=== PATIENT | male | born 1960 | race Caucasian/White ===

== ENCOUNTER 2019-08-25 13:12 | Emergency (ER) | payer BC, SELFPAY ==
[2019-08-25 13:18] VITALS: BP 168/101; PULSE 83; RESP 19; TEMP 36.4; O2SAT 97
--- NOTE | 2019-08-25 13:49 | ED.UPPEXIN ---
HPI - Extremity Injury (Upper) <AIDA Howard - Last Filed: 08/25/19 14:02> General Chief Complaint: Extremity Injury, Upper Stated Complaint: Think he broke a Blood Vessel right elbow Time Seen by Provider: 08/25/19 13:15 Source: patient Mode of arrival: Ambulatory Limitations: no limitations History of Present Illness HPI narrative: This is a 59-year-old male, nonsmoker, reports no chronic medical condition presents to ED with his significant other with chief complain of sudden onset of right elbow swelling and bruise. Reports he was washing car and lean done the affected elbow to clean a rim of the car and felt skin stretching and mild discomfort. Patient denies history of blood clotting problems. Reports occasional bleeding from his gum but denies noticing blood in his stool or urine or frequent bruising. Patient states is in good health but takes 1 baby aspirin a day for heart protectant purpose since family history of CAD. Patient reports intact sensation and good strength on affected arm. Patient states immediately he used ice pack and had put pressure around his upper arm to help with bruising and swelling and states seems the size of the swelling has decreased since then. Related Data Previous Rx's Medication Instructions Recorded omeprazole 40 mg PO QDAY #90 cap 07/25/17 Allergies Allergy/AdvReac Type Severity Reaction Status Date / Time INGREDIENT: NO KNOWN - NO Allergy Unknown Uncoded 08/25/19 13:33 KNOWN DRUG ALLERGY Review of Systems <AIDA Howard - Last Filed: 08/25/19 14:02> Review of Systems Narrative: General: Denies fever, chills, fatigue, malaise, sweats. HEENT: Denies sinus pain, ear pain, sore throat, difficulty swallowing, dizziness. Respiratory: Denies dyspnea, cough, wheezing, hemoptysis, sputum. Cardiovascular: Denies chest pain, palpitations, orthopnea, edema. Gastrointestinal: Denies nausea, vomiting, abdominal pain, diarrhea, constipation, melena. : Denies dysuria, frequency, incontinence, hematuria, urinary retention. Musculoskeletal: See HPI Skin: See HPI Neurologic: Denies weakness, headache, numbness, change in speech, confusion, seizures, incoordination. Psychiatric: No concerning psychosocial issues. 12-point review of systems is negative except for those stated above. Patient History <AIDA Howard - Last Filed: 08/25/19 14:02> Medical History No significant past medical history (Acute) Surgical History No pertinent past surgical history (Acute) Family History Brother Age: 55 Heart valve problem High cholesterol Overweight Back problem Father Prostate cancer Social History Smoking Status: Never smoker Smoking Status: Never smoker alcohol intake frequency: 3 or more drinks per day Alcohol type: beer Substance Use Type: does not use Exam <AIDA Howard - Last Filed: 08/25/19 14:02> Narrative Exam Narrative: General appearance: well developed, well nourished, in no acute distress. Head: normocephalic, atraumatic, no scalp lesions, non-tender. ENT: Hearing grossly intact. Nose without bleeding, purulent discharge. Mucous membrane moist, no mucosal lesion. Throat without erythema, tonsillar hypertrophy or exudate. Uvula in midline, airway patent. Neck/Thyroid: neck supple, full range of motion, no visible masses or meningeal signs. No JVD, non-tender without lymphadenopathy. Skin: no suspicious rashes, lesions over visible areas. Warm and dry and appropriate color for ethnicity. Heart: no clubbing, no cyanosis, no edema. Lungs: Breathing even and unlabored. No stridor. No accessory muscles used. Able to speak in full sentences. Chest: normal shape and expansion. Abdomen: non-obese, non-distended. Neurologic: alert and oriented. Cognitive exam, [employer] and PNS grossly intact on informal exam. Psych: good eye contact, normal affect. Initial Vital Signs Initial Vital Signs: Vital Signs Temperature 97.5 F L 08/25/19 13:18 Pulse Rate 83 08/25/19 13:18 Respiratory Rate 19 08/25/19 13:18 Blood Pressure 168/101 H 08/25/19 13:18 Pulse Oximetry 97 08/25/19 13:18 Extrem Right upper extremity: full ROM, normal capillary refill, elbow/forearm Details: swelling (Mild diffused) Location: of the olecranon, normal ROM (Equal bilateral full strength with good extension and flexion), ecchymosis (Mild diffused dorsal aspect of elbow) and distal pulses intact (Intact in radial ); no unusual warmth, no abrasions, no lacerations, no crepitus, no foreign bodies and no deformity and hand Details: normal to inspection, normal capillary refill, neuromotor exam normal, neurosensory exam normal and normal ROM of fingers <Jessee Lubin DO - Last Filed: 08/25/19 14:30> Initial Vital Signs Initial Vital Signs: Vital Signs Temperature 97.5 F L 08/25/19 13:18 Pulse Rate 83 08/25/19 13:18 Respiratory Rate 19 08/25/19 13:18 Blood Pressure 168/101 H 08/25/19 13:18 Pulse Oximetry 97 08/25/19 13:18 Scores <Behzad GarzaVIC RicoP - Last Filed: 08/25/19 14:02> GCS Oscar coma scale eye opening: Spontaneous [place] coma scale verbal response: Orientated Oscar coma scale motor response: Obey commands Oscar coma scale total score: 15 Course [facility] Last Filed: 08/25/19 14:02> Vital Signs Vital signs: Vital Signs - 8 hr 08/25/19 13:18 Temperature 97.5 F L Pulse Rate 83 Respiratory Rate 19 Blood Pressure 168/101 H Pulse Oximetry 97 <Jessee Lubin DO - Last Filed: 08/25/19 14:30> Vital Signs Vital signs: Vital Signs - 8 hr 08/25/19 13:18 Temperature 97.5 F L Pulse Rate 83 Respiratory Rate 19 Blood Pressure 168/101 H Pulse Oximetry 97 [facility] - Extremity Injury (Upper) <[facility] Last Filed: 08/25/19 14:02> Differential Diagnosis Differential diagnosis: Likely other (Elbow contusion, bursitis, clotting defect) Medical Records Attestation: I reviewed the patient's medical records. Lab Data Attestation: I reviewed the patient's lab results. [facility] Narrative Medical decision making narrative: This is a 59-year-old male who presents to ED with sudden onset of right elbow bruising and swelling after leaning on the affected right elbow and bearing weight while cleaning his car. Patient has good strength on affected arm with normal flexion and extension against resistance. He had good radial pulse and intact sensation. Patient declined CBCs test stating he has been healthy and should see his doctor sometime soon for general medical exam and basic lab tests. Considered x-ray test but there is no trauma involved with patient has good strength and range of motion so this has been deferred. Lkeber wrap was offered but states he has it at home you had how to use this to give support and help with swelling. Cool pack was applied on affected site and advised to use next 1-2 days intermittently. Patient had may have bursitis without infection. Patient advised to skip baby aspirin for next several days and watch for signs of bleeding in other areas. We reviewed return precautions such as signs of infection and patient verbalized understanding and agreement with the treatment plan. Discharge Plan Departure Patient Disposition: Home Clinical Impression: Elbow contusion Qualifiers: Encounter type: initial encounter Laterality: right Qualified Code(s): S50.01XA - Contusion of right elbow, initial encounter Discharge Date/Time: 08/25/19 13:40 Instructions: DI for Elbow Sprain Activity Restrictions/Additional Instructions: You have been diagnosed with [elbow bruise and swelling. You have good strength with sensation, range of motion on affected arm. There is limited discomfort. X-ray test has been deferred due to no trauma. Please follow-up with primary care physician in the near future for blood test-CBC and clotting factors. You may skip taking baby aspirin for next few days. You can use Kleber wrap on affected site to help with mild swelling and support. You can use cool packs on for 30 minutes next 2 days if you continue to have swelling.]. What to do: *Take your medications as directed. *Follow up with your primary care provider in 2-3 days, call for an appointment. Let them know you were seen in the ED and that we asked you to be seen in follow up. *Return to ED if you have any new, worsening, or concerning symptoms, such as [fever, redness increasing around the elbow, not feeling well, increasing pain, chest pain, breathing difficulty or any acute concerns]. Prescriptions: No Action omeprazole 40 MG capsule,delayed release(DR/EC) 40 mg PO QDAY Qty: 90 RF: 3 <Jessee Lubin DO - Last Filed: 08/25/19 14:30> Cosign ED Attending Cosignature Attestation: Dr Lubin Co-Sign Statement: I was available for consultation during this patient's emergency department visit. This chart is signed by myself for administrative purposes only. I did not have direct contact with this patient during this visit. They were seen independently by the APC.
== END 2019-08-25 13:40 | disposition home or self-care (01) ==
PROVIDERS: Emergency Provider Nurse Practitioner Family; Referring Provider Nurse Practitioner Family
DX: S50.01XA Contusion of right elbow, initial encounter (principal); Z79.82 Long term (current) use of aspirin
CPT/HCPCS: 99281

== ENCOUNTER → 2020-01-22 08:42 | Outpatient (CLI) | payer OTHER, SELFPAY ==
--- NOTE | 2020-01-22 08:48 | DI.RAD.S_ITS ---
PROCEDURE: XR HIP W PEL IF DONE RT 2V INDICATIONS: right groin pain TECHNIQUE: AP pelvis with lateral view(s) of the right hip(s). COMPARISON: None. FINDINGS: Bones: No fractures or dislocations. Moderate right hip joint osteoarthritic changes are seen. Pelvic ring appears intact. No suspicious bony lesions. Soft tissues: The visualized bowel gas pattern is normal. No suspicious soft tissue calcifications. IMPRESSION: Right hip joint osteoarthritis. No fracture or dislocation. No evidence of avascular necrosis. Dictated by: Juan C Trejo M.D. on 01/22/2020 at 10:05 Approved by: Juan C Trejo M.D. on 01/22/2020 at 10:05
== END ==
PROVIDERS: PCP Family Medicine; Referring Provider Family Medicine; Visit Provider Family Medicine
DX: R10.31 Right lower quadrant pain (principal); M16.11 Unilateral primary osteoarthritis, right hip
CPT/HCPCS: 73502

== ENCOUNTER → 2020-02-24 07:19 | Outpatient (CLI) | payer OTHER, SELFPAY ==
[2020-02-24 08:39] LABS: Hemoglobin A1C% w Est Avg Glu 5.7 % (4.0-6.0)
[2020-02-24 09:12] LABS: BUN Creatinine Ratio 15.8 (6-22); Blood Urea Nitrogen 16 mg/dL (9-20); Calcium 9.7 mg/dL (8.4-10.2); Carbon Dioxide 28 mmol/L (22-32); Chloride 104 mmol/L (98-107); Cholesterol 232 mg/dL (140-199); Estimated Glomerular Filt Rate > 60.0 mL/min (>60); Glucose 106 mg/dL (70-100); HDL Cholesterol 40 mg/dL (40-60); HEMOLYSIS < 15 (0-50); LDL Cholesterol Calculated 150 mg/dL (<100); Potassium 4.6 mmol/L (3.4-5.1); Sodium 138 mmol/L (137-145); Triglycerides 211 mg/dL (35-150)
== END ==
PROVIDERS: PCP Family Medicine; Referring Provider Family Medicine; Visit Provider Family Medicine
DX: E78.5 Hyperlipidemia, unspecified (principal); K21.9 Gastro-esophageal reflux disease without esophagitis
CPT/HCPCS: 36415; 80048; 80061; 83036

== ENCOUNTER → 2021-09-29 07:02 | Outpatient (CLI) | payer OTHER, SELFPAY ==
--- NOTE | 2021-09-29 07:04 | DI.US.S_ITS ---
PROCEDURE: US ABDOMEN LIMITED INDICATIONS: LEFT INGUINAL BULDGE TECHNIQUE: Real-time focused scanning was performed of the abdomen, with image documentation. COMPARISON: None. FINDINGS: Scanning is performed at the area of clinical concern involving the left inguinal region. There is a fat containing direct inguinal hernia seen, which partially reduces with compression. IMPRESSION: Fat containing partially reducible direct left inguinal hernia. Please consider surgical consultation. If it would be helpful for clinical management decision making in this patient with this given history, please consider a dedicated CT of the pelvis for further evaluation. Dictated by: Heriberto Gutierrez M.D. on 09/29/2021 at 8:47 Approved by: Heriberto Gutierrez M.D. on 09/29/2021 at 8:48
== END ==
PROVIDERS: PCP Family Medicine; Referring Provider Family Medicine; Visit Provider Family Medicine
DX: R19.09 Other intra-abdominal and pelvic swelling, mass and lump (principal); R10.32 Left lower quadrant pain; K40.90 Unilateral inguinal hernia, without obstruction or gangrene, not specified as recurrent
CPT/HCPCS: 76705

== ENCOUNTER → 2021-10-24 08:54 | Outpatient (CLI) | payer OTHER, SELFPAY ==
[2021-10-24 11:57] LABS: COVID19 -Nasal RAPID Negative (Negative)
== END ==
PROVIDERS: PCP Family Medicine; Visit Provider Surgery
DX: Z01.812 Encounter for preprocedural laboratory examination (principal); Z20.822 Contact with and (suspected) exposure to COVID-19
CPT/HCPCS: 87635; C9803

== ENCOUNTER 2021-10-25 06:43 | Day surgery (SDC) | payer OTHER, SELFPAY ==
[2021-10-21 08:23] VITALS: BMI 30.1
[2021-10-25] VITALS (11 sets, daily range): BP systolic 102–137; BP diastolic 67–86; PULSE 58–64; RESP 11–21; TEMP 35.9–36.2; O2SAT 93–98; BMI 30.1
[2021-10-25] MEDS: LACTATED RINGERS 1,000 ML 42 ML IV ×2 (07:28→09:09)
--- NOTE | 2021-10-25 07:37 | PM.PREOP ---
Pre-operative Note Interval Note History & Physical reviewed/Exam performed by Physician: Yes Changes to H&P: No
[2021-10-25] MEDS: CEFAZOLIN 2 GM/20 ML SYRINGE IV (07:53)
--- NOTE | 2021-10-25 08:08 | SUR.OPER ---
Supine on padded OR bed, head on pillow, arms secured on padded arm boards at <90 degrees abduction, legs uncrossed, safety belt at thigh, tape over blanket over lower legs.
[2021-10-25] MEDS: BUPIVACAINE 0.5% (PF) VIAL 30 ML INJ (08:13)
--- NOTE | 2021-10-25 08:58 | P.OP_ITS ---
Operative Date/Time/Diagnoses Date of procedure: 10/25/21 Time of procedure: 08:58 Pre-op diagnosis: Left inguinal hernia Post-op diagnosis: same Procedure & Clinicians Procedure: Open left inguinal hernia repair with mesh Same procedure as scheduled: Yes Indications: Symptomatic reducible left inguinal hernia Surgeon: Donta Samuel Operative Notes Findings: Large left inguinal hernia containing loop of colon and omentum Specimen(s): none sent Estimated Blood Loss (mL): 20 Procedure in detail: The patient was placed supine on the table and bilateral lower extremity compression devices were applied. Anesthesia was induced they were intubated with an LMA and received Clindamycin. A time-out was performed. They were prepped and draped in sterile fashion. The left external inguinal ring and the anterior superior iliac crest were identified and marked. 1 finger breath above the inguinal ligament the skin was infiltrated with 0.25% bupivacaine. The skin incision was made here and the subcutaneous tissues were divided with electrocautery exposing the external oblique aponeurosis which was then opened along the direction of its fibers. Using blunt dissection the internal oblique aporneurosis was from the external oblique upper leaflet. the cord was carefully dissected away from the inguinal canal adjacent to the pubic tubercle. The cord including the vas deferens, testicular bloody supply, ilioguinal and genital nerve were encircled with a [place] drain. No direct floor defect was identified. The cremasteric fibers surrounding the cord were divided using electrocautery adjacent to the internal ring.. The vas deferens and the testicular vessels were preserved and protected. There was a large indirect hernia on the anterior medial aspect of the cord which was skeletonized away from the vas deferens and testicular blood supply. The indirect hernia contained a loop of colon and associated omentum. The indirect hernia was skeletonized back to the internal ring and reduced spontaneously into the abdomen. I selected a 7x 15 cm lightweight Pro Loop hernia mesh. The inferior medial aspect of the mesh was anchored to insertion of the rectus muscle to the pubic tubercle such that there was approximately 2 cm of tubercle overlap with Ethibond and then was run continuously along the inferior edge of the mesh to the shelving edge of the inguinal ligament. Interrupted 3 0 Vicryl suture was used to anchor the superior aspect of the mesh to the conjoined tendon in several places. The tails were then reapproximated loosely around the spermatic cord. The tails of the mesh were then tucked under the external oblique aponeurosis. The repair was checked for hemostasis. The wound was irrigated with sterile saline. The external oblique aponeurosis was reapproximated in a running fashion using 3 0 Vicryl. The subcutaneous tissues were reapproximated with 3 0 Vicryl skin closed with 4 0 Monocryl followed by the application of Dermabond. At the end of the operation I ensured that both testicles were within the scrotum. The sponge instrument count at the end operation was correct. The patient emerged from anesthesia was extubated and transferred to the postoperative care unit in stable condition. A total of 30 ml of of 0.25% bupivicaine was used to infiltrate the skin. Complications: none Post-operative Condition: stable Disposition: same day surgery
[2021-10-25] MEDS: ONDANSETRON 4 MG/2 ML INJ IV (09:14)
--- NOTE | 2021-10-25 09:15 | SUR.PHASEI ---
Patient waking up but drowsy; denies any needs at this time and speaking in full sentences. Following all commands. VSS.
[2021-10-25] MEDS: OXYCODONE/ACETAMINOPHEN 5/325 TABLET 1 TAB PO (09:18)
== END 2021-10-25 10:03 | disposition home or self-care (01) ==
PROVIDERS: PCP Family Medicine; Referring Provider Surgery; Visit Provider Surgery
PROC: (CPT 49505; principal; 2021-10-25 07:45)
DX: K40.90 Unilateral inguinal hernia, without obstruction or gangrene, not specified as recurrent (principal); K21.9 Gastro-esophageal reflux disease without esophagitis
CPT/HCPCS: 49505; 82962; J0690; J2405; J3010

== ENCOUNTER 2022-05-12 09:07 | Emergency (ER) | payer OTHER, SELFPAY ==
--- NOTE | 2022-05-12 09:53 | DI.RAD.S_ITS ---
PROCEDURE: XR KNEE LT 3V INDICATIONS: Pain. TECHNIQUE: 3 views of the knee were acquired. COMPARISON: None. FINDINGS: Bones: No fractures or dislocations. No suspicious bony lesions. Minimal early medial arthritic changes. Patellar spur is present. Soft tissues: Mild joint effusion. No suspicious soft tissue calcifications. IMPRESSION: Mild effusion. No visualized acute fracture or dislocation. However, if clinical concern and/or pain persist, short interval imaging followup in 7-10 days is recommended, as occult injury cannot be definitively excluded. Dictated by: Viv King M.D. on 05/12/2022 at 10:36 Approved by: Viv King M.D. on 05/12/2022 at 10:36
[2022-05-12 09:54] VITALS: BP 151/79; PULSE 66; RESP 18; TEMP 36.3; O2SAT 98; BMI 29.7
--- NOTE | 2022-05-12 10:26 | ED.LOWEXIN ---
HPI - Extremity Injury (Lower) General Chief Complaint: Extremity Injury, Lower Stated Complaint: hurt LT knee T-14 getting worse Time Seen by Provider: 05/12/22 10:10 Source: patient Mode of arrival: Family Vehicle Limitations: no limitations History of Present Illness HPI Narrative: Patient is a 62-year-old male who a couple weeks ago stated that he hurt the muscles in his left knee. He was still able to ambulate and things seem to be improving somewhat however today he stepped down off of a step ladder. He did state that he stepped little awkwardly. He felt and heard a pop in his leg. Has had pain on the inside of his knee since then. Is able to ambulate but with discomfort. It is difficult for him to specifically describe where they discomfort is. No prior surgeries to this knee. Related Data Home Medications Medication Instructions Recorded Confirmed omeprazole 20 mg capsule,delayed 20 mg PO DAILY 01/22/20 10/25/21 release Previous Rx's Medication Instructions Recorded acetaminophen 325 mg capsule 650 mg PO QID PRN pain #60 caps 10/25/21 (Tylenol) docusate sodium 100 mg capsule 100 mg PO BID #30 caps 10/25/21 (Colace) ibuprofen 200 mg tablet 400 mg PO Q6H #60 tabs 10/25/21 tramadol 50 mg tablet 50 mg PO Q6H PRN pain #25 tabs 05/12/22 Allergies Allergy/AdvReac Type Severity Reaction Status Date / Time No Known Drug Allergies Allergy Verified 11/10/21 09:03 Review of Systems Constitutional Constitutional: Reports system reviewed and no additional complaints, except as documented Musculoskeletal Musculoskeletal: Reports system reviewed and no additional complaints, except as documented Integumentary/Breasts Skin/Breast: Reports system reviewed and no additional complaints, except as documented Neurologic Neurologic: Reports system reviewed and no additional complaints, except as documented Patient History Medical History GERD (gastroesophageal reflux disease) Hyperlipidemia Left groin mass Left groin pain No significant past medical history Olecranon bursitis Right groin pain Surgical History (Updated 10/21/21 @ 08:27 by Kate Cowan RN) History of ankle surgery (~2001) Family History Brother Age: 58 Heart valve problem High cholesterol Overweight Back problem Father Prostate cancer Social History household members: spouse Smoking Status: Never smoker alcohol intake: current Smoking Status: Never smoker alcohol intake frequency: 0-2 drinks per day Alcohol type: beer Substance Use Type: does not use Exam Initial Vital Signs Initial Vital Signs: Vital Signs Temperature 97.3 F L 05/12/22 09:54 Pulse Rate 66 05/12/22 09:54 Respiratory Rate 18 05/12/22 09:54 Blood Pressure 151/79 H 05/12/22 09:54 Pulse Oximetry 98 05/12/22 09:54 Oxygen Delivery Method 05/12/22 09:54 Const General: cooperative and No ill appearing HENMT Head: normal to inspection and normocephalic Skin General: no rashes or lesions noted Extrem Other: Minimal if any effusion left knee. Quadriceps and patellar tendon are intact. No tenderness with palpation of the hamstrings. No tenderness along the mediolateral joint line. His PCL MCL and LCL are intact. He does have discomfort with testing of his ACL which makes it difficult to see if there is a firm endpoint to this. Course Orders Ordered: ED Orders 05/12/22 09:53 XR knee LT 3V Stat Vital Signs Vital signs: Vital Signs - 8 hr 05/12/22 09:54 05/12/22 11:21 05/12/22 11:22 Temperature 97.3 F L Pulse Rate 66 Respiratory Rate 18 Blood Pressure 151/79 H Pulse Oximetry 98 95 96 Oxygen Delivery Method Room Air Room Air 05/12/22 11:22 Temperature Pulse Rate 68 Respiratory Rate Blood Pressure 136/88 Pulse Oximetry Oxygen Delivery Method MDM - Extremity Injury (Lower) Differential Diagnosis Differential diagnosis: Likely other (Fracture, dislocation, ligament tear, muscle tear and others) Imaging Data Extremity x-ray #1: Radiologist's Impression: [address] [address] XRay Report Signed Patient: Chris Stein MR#: [id number] : 1960 Acct:[id number] Age/Sex: 62 / M Date of Service: 05/12/22 Loc: ED Accession Number: [id number] ?? Procedure: XR knee LT 3V Ordering Provider: Jessee Lubin D.O. PROCEDURE:? XR KNEE LT 3V ? INDICATIONS:? Pain. ? TECHNIQUE:? 3 views of the knee were acquired.? ? COMPARISON:? None. ? FINDINGS:? ? Bones:? No fractures or dislocations.? No suspicious bony lesions.? Minimal early medial arthritic changes.? Patellar spur is present. ? Soft tissues:? Mild joint effusion.? No suspicious soft tissue calcifications.? ? ? IMPRESSION:? Mild effusion. No visualized acute fracture or dislocation. However, if clinical concern and/or pain persist, short interval imaging followup in 7-10 days is recommended, as occult injury cannot be definitively excluded. ? ? Dictated by: Viv King M.D. on 05/12/2022 at 10:36 ? ? Approved by: Viv King M.D. on 05/12/2022 at 10:36? MDM Narrative Medical decision making narrative: The x-ray shows no signs of fracture or dislocation. There is a small effusion noted on the x-ray. His only objective finding is discomfort with testing of the ACL. Does appear to be intact because it does have a firm endpoint however there is concern that he has partial tear versus sprain of this. There is also concern about meniscus injury given his injury. Patient was given crutches. Was given an Kleber bandage although he was also instructed that he could purchase a knee brace [id number]. We discussed conservative measures to include elevation and ice. He will contact his primary provider for a follow-up and if his symptoms have not improved or if he continues to have instability he may need a MRI. He was given return precautions. He expressed understanding and agreement. Discharge Plan Departure Patient Disposition: Home Clinical Impression: Injury of knee, left Instructions: How to Use Crutches, How To Perform RICE (Rest, Ice, Compress, Elevate), How to Apply an Elastic Wrap on Knee Activity Restrictions/Additional Instructions: There were no fractures noted on the x-rays you can walk on your knee as tolerated. I do recommend that you either use the Kleber bandage or purchase a knee brace to support the left knee. Use the crutches as needed. Contact your primary doctor for a follow-up as you may need further imaging to include an MRI. Return to the emergency department for new symptoms. Prescriptions: New tramadol 50 mg tablet 50 mg PO Q6H PRN (Reason: pain) Qty: 25 0RF No Action omeprazole 20 mg capsule,delayed release(DR/EC) 20 mg PO DAILY docusate sodium [Colace] 100 mg capsule 100 mg PO BID Qty: 30 0RF ibuprofen 200 mg tablet 400 mg PO Q6H Qty: 60 0RF acetaminophen [Tylenol] 325 mg capsule 650 mg PO QID PRN (Reason: pain) Qty: 60 0RF Referrals: Lino Sheehan MD [Primary Care Provider] - Stand Alone Forms: Patient Portal/API, Work Release Note
[2022-05-12 11:21] VITALS: O2SAT 95
[2022-05-12 11:22] VITALS: BP 136/88; PULSE 68; O2SAT 96
== END 2022-05-12 11:32 | disposition home or self-care (01) ==
PROVIDERS: Emergency Provider Emergency Medicine; PCP Family Medicine
DX: S89.92XA Unspecified injury of left lower leg, initial encounter (principal); X50.1XXA Overexertion from prolonged static or awkward postures, initial encounter
CPT/HCPCS: 73562; 99283

== ENCOUNTER → 2022-06-02 07:26 | Outpatient (CLI) | payer OTHER, SELFPAY ==
[2022-06-02 08:07] LABS: Add Manual Diff / Slide Review NO; Basophils Absolute Auto 0 /uL (0-100); Basophils Percent Auto 0.9 % (0-2); Eosinophils Absolute Auto 100 /uL (0-450); Eosinophils Percent Auto 2.6 % (2-4); Hematocrit 41.1 % (41-53); Hemoglobin 13.8 g/dL (13.5-17.5); Lymphocytes Absolute Auto 1200 /uL (1100-4500); Lymphocytes Percent Auto 25.3 % (25-40); Mean Corpuscular HGB Conc 33.5 % (30-36); Mean Corpuscular Hemoglobin 30.3 PG (26-34); Mean Corpuscular Volume 90.4 fL (80-100); Monocytes Absolute Auto 500 /uL (0-900); Monocytes Percent Auto 9.5 % (3-14); Neutrophils Absolute Auto 3000 /uL (1500-7000); Neutrophils Percent Auto 61.7 % (50-75); Platelet Count 312 X10^3/uL (150-400); Red Blood Cell Count 4.54 X10^6/uL (4.5-5.9); Red Cell Distribution Width 12.9 % (11.6-14.8); White Blood Cell Count 4.8 X10^3/uL (4.5-11.0)
[2022-06-02 08:17] LABS: Alanine Aminotransferase 32 IU/L (<50); Albumin 4.2 g/dL (3.5-5.0); Albumin Globulin Ratio 1.4 (1.0-2.8); Alkaline Phosphatase 69 U/L (38-126); Aspartate Aminotransferase 26 IU/L (17-59); BUN Creatinine Ratio 11.5 (6-22); Bilirubin Total 0.8 mg/dL (0.2-1.3); Blood Urea Nitrogen 13 mg/dL (9-20); Calcium 9.2 mg/dL (8.4-10.2); Carbon Dioxide 27 mmol/L (22-32); Chloride 101 mmol/L (98-107); Cholesterol 227 mg/dL (140-199); Estimated Glomerular Filt Rate > 60 mL/min (>60); Glucose 111 mg/dL (80-110); HDL Cholesterol 43 mg/dL (40-60); HEMOLYSIS < 15 (0-50); LDL Cholesterol Calculated 148 mg/dL (<100); Potassium 4.3 mmol/L (3.4-5.1); Sodium 136 mmol/L (137-145); Total Protein 7.2 g/dL (6.3-8.2); Triglycerides 182 mg/dL (35-150)
== END ==
PROVIDERS: PCP Family Medicine; Referring Provider Family Medicine; Visit Provider Family Medicine
DX: E78.5 Hyperlipidemia, unspecified (principal); K21.9 Gastro-esophageal reflux disease without esophagitis; R10.31 Right lower quadrant pain
CPT/HCPCS: 36415; 80053; 80061; 85025

== ENCOUNTER → 2023-02-15 07:52 | Outpatient (CLI) | payer OTHER, SELFPAY ==
[2023-02-15 09:01] LABS: Add Manual Diff / Slide Review NO; Basophils Absolute Auto 0 /uL (0-100); Eosinophils Absolute Auto 200 /uL (0-450); Eosinophils Percent Auto 3.5 % (2-4); Hematocrit 41.1 % (41-53); Hemoglobin 13.8 g/dL (13.5-17.5); Lymphocytes Absolute Auto 1300 /uL (1100-4500); Lymphocytes Percent Auto 27.8 % (25-40); Mean Corpuscular HGB Conc 33.5 % (30-36); Mean Corpuscular Hemoglobin 30.1 PG (26-34); Mean Corpuscular Volume 89.8 fL (80-100); Monocytes Absolute Auto 500 /uL (0-900); Monocytes Percent Auto 9.8 % (3-14); Neutrophils Absolute Auto 2800 /uL (1500-7000); Neutrophils Percent Auto 57.9 % (50-75); Platelet Count 304 X10^3/uL (150-400); Red Blood Cell Count 4.57 X10^6/uL (4.5-5.9); Red Cell Distribution Width 12.5 % (11.6-14.8); White Blood Cell Count 4.8 X10^3/uL (4.5-11.0)
[2023-02-15 09:13] LABS: Bilirubin Urine UA NEGATIVE (NEGATIVE); Glucose Urine UA NEGATIVE (Negative); Ketones Urine UA NEGATIVE (NEGATIVE); Leukocyte Esterase Urine UA NEGATIVE (NEGATIVE); Nitrite Urine UA NEGATIVE (Negative); Occult Blood Urine UA NEGATIVE (Negative); Protein Urine UA NEGATIVE (Negative); Specific Gravity Urine UA >=1.030 (1.000-1.035); pH Urine UA 5.5 (4.5-8.0)
[2023-02-15 09:17] LABS: Hemoglobin A1C% w Est Avg Glu 5.9 % (4.0-6.0)
[2023-02-15 09:36] LABS: Appearance Urine UA Clear; Color Urine UA Yellow; RBC Urine None Seen (0-5/HPF); WBC Urine 0-1/HPF (0-5/HPF)
[2023-02-15 09:37] LABS: Bacteria Urine Occasional (0-1); Culture Indicated Urine Cult Not Indicated; Mucus Urine 1+ (Negative); Squamous Epithelial Cell Urine None Seen (0-5/HPF)
[2023-02-15 09:56] LABS: BUN Creatinine Ratio 16.2 (6-22); Blood Urea Nitrogen 19 mg/dL (9-20); Calcium 9.6 mg/dL (8.4-10.2); Carbon Dioxide 24 mmol/L (22-32); Chloride 103 mmol/L (98-107); Estimated Glomerular Filt Rate > 60 mL/min (>60); Glucose 101 mg/dL (80-110); HEMOLYSIS < 15 (0-50); Potassium 4.7 mmol/L (3.4-5.1); Sodium 136 mmol/L (137-145)
== END ==
LOC: LAB 07:53 → RESP 07:55
PROVIDERS: PCP Family Medicine; Referring Provider Orthopaedic Surgery; Visit Provider Orthopaedic Surgery
DX: Z01.818 Encounter for other preprocedural examination (principal); Z01.812 Encounter for preprocedural laboratory examination; R73.9 Hyperglycemia, unspecified; N39.0 Urinary tract infection, site not specified
CPT/HCPCS: 36415; 80048; 81001; 83036; 85025; 93005

== ENCOUNTER 2023-05-22 06:07 | Day surgery (SDC) | payer OTHER, SELFPAY ==
[2023-05-14 08:38] VITALS: BMI 30.1
[2023-05-22] VITALS (14 sets, daily range): BP systolic 94–148; BP diastolic 48–94; PULSE 54–81; RESP 16–18; TEMP 35.9–36.4; O2SAT 93–97; BMI 30.1
[2023-05-22] MEDS: LACTATED RINGERS 1,000 ML 42 ML IV ×2 (07:14→09:55)
[2023-05-22] MEDS: CEFAZOLIN 2 GM/100 ML PREMIX 100 ML IV ×2 (07:50→16:39)
--- NOTE | 2023-05-22 07:55 | P.OP_ITS ---
Operative Date/Time/Diagnoses Date of procedure: 05/22/23 Time of procedure: 08:10 Pre-op diagnosis: Right hip OA Post-op diagnosis: same Procedure & Clinicians Procedure: Right total hip arthroplasty anterior approach Same procedure as scheduled: Yes Indications: The patient has had progressively worsening right hip pain with radiographic c hanges consistent with arthritis. Non-operative management has failed and the patient has requested total hip replacement. The risks, benefits and alternatives to surgery were discussed with the patient prior to proceeding. Risks discussed included, but were not limited to, failure to relieve pain, leg length discrepancy, dislocation, stiffness, infection, nerve damage, deep venous thrombosis, pulmonary embolism, stroke, coma, heart attack, permanent paralysis and , as well as the potential need for eventual revision of the prosthetic. Surgeon: Inna Ridley [facility] Registered Nurse: Beni Lyon Anesthesia Type: General and Spinal Operative Notes Findings: Severe right hip osteoarthritis, good stability, hard bone Closure Type: primary Specimen(s): none sent Prosthetic devices, grafts, tissues, transplants, or devices: Ridley and nephew R3 size 54, neutral poly liner,one 6.5 mm screw, size 2 polar standard offset with collar, size 36+ 0 Oxinium head Estimated Blood Loss (mL): 250 Blood products transfused: none Procedure in detail: The patient was brought to the operating room. Patient was carefully positioned in the supine position. Time-out was performed and antibiotics were given. Anesthesia was induced. He was positioned in the on the table in order to allow hyperextension of the hip. The right lower extremity was prepped and draped in a standard sterile fashion. An anterior right hip incision was made 1 fingerbreadth lateral to the anterior superior iliac spine and extended distally towards the greater trochanter. Dissection was carried out through skin and subcutaneous tissues. Superficial hemostasis was achieved. The fascia over the tensor fascia gypsy was defined and incised with a knife. Two Allis clamps were used to grasp the fascia. Tensor fascia gypsy was retracted laterally. A gelpi retractor was placed. Dissection was carried out down along the neck. The circumflex vessels were carefully identified and cauterized with the Aqua Mantis. A PA was used during the procedure and was essential for intraoperative retr action and safe implantation of the components. Had a very tight hip and very dense bone. There was good visualization of the femoral neck. A Cobra was placed superior to the neck and the gluteus fibers were carefully stripped from that superior aspect of the capsule. A 2nd retractor was placed along the inferior aspect of the neck. The rectus insertion along the capsule was partially released. A 3rd retractor that was then gently placed over the rim of the acetabulum under the rectus. Capsule was carefully incised and released from the intertrochanteric line circumferentially superior to the mid sagittal line and inferiorly to the mid sagittal line until the lesser trochanter was palpable. A tag stitch was placed both in the superior and inferior limb of the capsular insertion. Along the acetabulum capsule was also released up to the mid sagittal 12:00 position. A portion of the labrum was resected. A saw was used to perform an osteotomy at the level of the intertrochanteric line and the junction of the superior femoral neck leaving approximately 1 finger breath of residual inferior neck above the lesser trochanter. A 2nd cut was made along the femoral neck at the base of the head and a napkin ring of neck was removed. Corkscrew was placed in the femoral head and the head was removed without difficulty. Retractors were then repositioned around the acetabulum. Residual labrum was resected and additional osteophytes were removed. A reamer that was 4 mm below the templated size was placed by hand in the acetabulum and it was reamed to centralize the acetabulum. It was then reamed up to 2 under the templated size and fluoroscopy was brought in to confirm the position of the reaming and depth of reaming. I reamed 1 under the anticipated size. A trial cup was placed and noted that it was appropriately sized and fluoroscopy confirmed position and depth. The component was open and inserted without difficulty fluoroscopic imaging was used to confirm that the cup had been adequately seated and was well positioned. It was further stabilized with a single screw. Neutral poly liner was placed. The cup was tested and noted to be stable. Attention was then directed to the femur. The femur was gently hyperextended additional capsular release was performed as needed in order to allow adequate visualization of the proximal femur with elevation of the femur. Patient was placed in a hyperextended slightly adducted position with maximum external rotation. Box osteotome was used to check for any residual neck as well as sclerotic bone along the trochanter. [place] pepper was placed in the femur. Additional broaching was performed. Canal finder was used to determine the alignment of the canal and position. Size 0-1 broach was placed. The canal was then appropriately broached up to the templated size as long as there was adequate stability of the broach and serial advancement of the broach without excessive impingement. Specific attention was directed at avoiding varus attempting to direct the distal aspect of the broach more anteriorly and avoiding excessive anteversion. Trial reduction showed acceptable range of motion, good stability, no posterior impingement, jainism of leg length and appropriate lateral shuck. I also hyperflexed the hip and checked that there was no impingement anteriorly and there was good stability with flexion, adduc tion and internal rotation. Marcaine and Exparel were injected. The stem was placed without difficulty. Repeat trial reduction and x-ray showed acceptable overall position, length, and no evidence of the femoral fracture. Final head was placed. Wound was meticulously irrigated with normal saline. The hip was reduced and additional Exparel and Marcaine were injected. The capsule was closed with interrupted nonabsorbable sutures. The fascia of the tensor was closed with interrupted and running Vicryl. No drain was placed. Any tensor fascia gypsy muscle that appeared to be contused or injured which was a minimal amount was carefully resected. Capsule around the tensor was injected with Exparel and Marcaine. The skin was closed with barbed stitches for the subcutaneous tissue and skin. We also used surgical glue. The wound was dressed sterilely. Brief Betadine soak was also used and was meticulously irrigated with normal saline. Patient was transferred to recovery room in satisfactory condition. Complications: none Post-operative Condition: stable Disposition: Acute Care Plan for aftercare: The patient will be maintained on a standard total hip replacement protocol with weight bearing as tolerated and anterior hip precautions. The patient will receive Aspirin and sequential compression devices for DVT prophylaxis. The patient will be discharged home when safe for the home environment.
[2023-05-22] MEDS: TRANEXAMIC ACID 1,000 MG VIAL 1000 MG INJ ×2 (08:00→10:43)
[2023-05-22] MEDS: VANCOMYCIN 1,000 MG/200 ML PIGGYBACK 200 MG IV (08:00)
--- NOTE | 2023-05-22 08:41 | SUR.OPER ---
Patient supine on padded Thermal table, one arm on padded arm board at <90, other arm padded and secured with tape across patient's chest, both legs secured in padded traction boots and positioned per surgeon, padded post at patient's groin, pressure points checked and padded.
[2023-05-22] MEDS: BUPIVACAINE 0.25% (PF) 60 ML, EPINEPHrine 0.3 MG INJ (08:47)
[2023-05-22] MEDS: BUPIVACAINE LIPOSOME 266 MG/20 ML VIAL INJ (08:48)
--- NOTE | 2023-05-22 11:04 | DI.RAD.S_ITS ---
PROCEDURE: XR HIP W PEL IF DONE RT 2V INDICATIONS: POST OP ANTERIOR RIGHT HIP TECHNIQUE: 2 views of the hip were acquired. COMPARISON: [facility], [place], XR HIP W PEL IF DONE RT 2V, 05/22/2023, 9:20. [facility], [place], XR HIP W PEL IF DONE RT 2V, 01/22/2020, 8:37. FINDINGS: Bones: Right hip arthroplasty. [id number] left hip degenerative changes. Soft tissues: Postsurgical clips. No suspicious calcifications. Postsurgical changes. The IMPRESSION: Postsurgical changes following right hip arthroplasty. Dictated by: Benjamin Nathan M.D. on 05/22/2023 at 12:31 Approved by: Benjamin Nathan M.D. on 05/22/2023 at 12:32
[2023-05-22] MEDS: OXYCODONE/ACETAMINOPHEN 5/325 TABLET 1 TAB PO (11:30)
--- NOTE | 2023-05-22 12:38 | DI.RAD.S_ITS ---
PROCEDURE: XR HIP W PEL IF DONE RT 2V INDICATIONS: post-op. TECHNIQUE: 2 view(s) of the hip acquired. COMPARISON: [facility], [place], XR HIP W PEL IF DONE RT 2V, 01/22/2020, 8:37. FINDINGS: Intraoperative right hip arthroplasty, with hardware components in expected positions. The hip joint appears congruent. The visualized bony structures appear intact. IMPRESSION: Intraoperative right hip arthroplasty. Dictated by: Viv King M.D. on 05/22/2023 at 14:37 Approved by: Viv King M.D. on 05/22/2023 at 14:38
[2023-05-22] MEDS: ONDANSETRON 4 MG/2 ML INJ IV (12:50)
[2023-05-22] MEDS: LACTATED RINGERS 1,000 ML 100 ML IV (12:51)
[2023-05-22] MEDS: OXYCODONE IR 5 MG TABLET PO ×3 (14:00→21:17)
--- NOTE | 2023-05-22 14:55 | PT.IIE ---
Current Diagnoses Unilateral primary osteoarthritis, right hip (05/22/23) Surgery Performed Operation Date: 05/22/23 07:45 Actual Procedures p Total Hip Arthroplasty/Anterior Approach(Right) - Inna Ridley MD Surgical History (Last Updated 05/14/23 @ 09:06 by Kate Cowan RN) H/O vasectomy History of ankle surgery (~2001) Hx of foot surgery (~1984) Hx of hernia repair (10/25/21) Hx of tonsillectomy Medical History (Last Updated 05/14/23 @ 09:09 by Kate Cowan RN) GERD (gastroesophageal reflux disease) Hearing impaired History of COVID-19 (~2021) Hyperlipidemia Left groin mass Left groin pain No significant past medical history Olecranon bursitis Osteoarthritis Right groin pain Physical Therapy Inpatient Evaluation/Re-Eval M1 PT/OT-IP Prior Functional Status Start: 05/22/23 15:58 Freq: NEEDED Status: Active Protocol: Document 05/22/23 14:55 AB (Rec: 05/22/23 16:11 AB [id number]) Medical Review Prior Functional Status Medical History Reviewed Yes Communication able to make needs known Mobility and Gait pt was modified independent with all mobilities and ambulation without AD Social History Household Members spouse Living Arrangements House Number of Floors (Floors) One Floor Number of Stairs To Enter/Railing? 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 M2 PT-IP Current Condition Start: 05/22/23 15:58 Freq: NEEDED Status: Active Protocol: Document 05/22/23 14:55 AB (Rec: 05/22/23 16:11 AB [id number]) Physical Therapy Current Condition Current Condition Evaluation Date 05/22/23 Treatment Diagnosis s/p R SULEMAN anterior approach; difficulty in walking Onset Date 05/22/23 M3 PT-IP Subjective Start: 05/22/23 15:58 Freq: NEEDED Status: Active Protocol: Document 05/22/23 14:55 AB (Rec: 05/22/23 16:11 AB [id number]) Subjective Physical Therapy Visit Type Type Initial Evaluation Visit Start Time 14:55 Visit Stop Time 15:40 Number of CONTAINER FINISHING INSPECTOR Visits 0 Physical Therapy Visit Comments Patient Comments agreeable to do PT Therapy Pain Assessment Pain When Pain Assessed At Rest Pain Present Pain Present Pain Reported Location Right Hip Scale Used pain scale not stated M4 PT-IP Mobility and Gait Start: 05/22/23 15:58 Freq: NEEDED Status: Active Protocol: Document 05/22/23 14:55 AB (Rec: 05/22/23 16:11 AB [id number]) PT-Bed Mobility Assessment Sit to Supine Sit to Supine Standby Assistance PT-Transfer Assessment Sit to and From Stand Sit to and from Stand Contact Guard Assistance, Minimal Assistance,1 Person Assistance,Use of Upper Extremities Equipment Transfer Assistive Device Gait Belt,Front Wheeled Walker Orthotic/Prosthetic Devices or Brace: No Transfers Transfer Destination Toilet Transfer Technique ambulated Transfer Ability Level of Assist Contact Guard Assistance, Minimal Assistance,1 Person Assistance,Use of Upper Extremities Comments Mobility Comments pt sitting on EOB with OT and spouse in room. Pt c/o nausea . BP in sittin/78. reviewed R anterior hip precautions with pt and spouse and reviewed post-op folder. pt stated that he has to use the toilet. completed sit to stand CGA to min A and ambulated to the toilet using FWW CGA to min A. pt tends to not put weight on RLE and cued for stability. OT took over pt to assist with toileting needs. BP checked: 110/74. pt completed sit to stand from the toilet CGA to min A and ambulated back to EOB using FWW CGA to min A. pt completed sit to supine SBA. positioned pt in bed. call light and table placed within reach. talked with spouse regarding need for FWW and stated that she already got one. spouse agreed to do caregiver training tomorrow and set up for 9 am. Gait Assessment Gait Gait Assistance Required: Contact Guard Assist,Minimum Assistance Distance (Feet) 15 Able to Maintain Weight Bearing Status Yes During Gait Assistive Devices Assistive Device Gait Belt,Front Wheeled Walker Orthotic/Prosthetic Devices or Brace: No Gait Deviations General Gait Pattern Decreased Feet Clearance Factors Limiting Gait Function Factors Limiting Gait Function Decreased Activity Tolerance, Decreased Strength,Difficulty Following Directions,Limited Range of Motion,Pain,Poor Balance,Poor Safety Awareness PT-Balance Assessment Sitting Balance and Reactions Static Sitting Balance Ability Normal Dynamic Sitting Balance Ability Good Standing Balance and Reactions Static Standing Balance Ability Fair Dynamic Standing Balance Ability Fair Device Used FWW M5 PT-IP Objective Assessments Start: 05/22/23 15:58 Freq: NEEDED Status: Active Protocol: Document 05/22/23 14:55 AB (Rec: 05/22/23 16:11 AB [id number]) Orientation Orientation/Cognition Level of Alertness Alert Orientation Name,Place,Situation Language Function Ability No Deficits Noted Safety Awareness Decreased Safety Awareness Memory Description Short Term Impaired Gross Range of Motion Lower Extremity ROM Assessment Within Functional Limits Strength Lower Extremity Strength Assessment Right Impaired Hip 3+/5 Knee 4/5 Coordination Assessment Gross Coordination Gross Coordination WNL Sensation Assessment Sensation Gross Sensation WNL Muscle Tone Muscle Tone WNL Yes M6 PT-IP Treatment Start: 05/22/23 15:58 Freq: NEEDED Status: Active Protocol: Document 05/22/23 14:55 AB (Rec: 05/22/23 16:11 AB [id number]) Physical Therapy Treatment Education Education Provided Precautions,Weight Bearing Status,Post-Op Packet,Safety M7 PT-IP Assessment and Plan Start: 05/22/23 15:58 Freq: NEEDED Status: Active Protocol: Document 05/22/23 14:55 AB (Rec: 05/22/23 16:11 AB [id number]) PT Summary Assessment and Plan Potential Rehabilitation Potential Fair Status of Condition at Evaluation Evolving Summary Impairments Pain,ROM,Strength,Balance, Coordination,Sensation,Tone, Cognition,Bed Mobility, Transfers,Gait,Activity Tolerance Assessment Summary pt is a 63 y/o M s/p R SULEMAN anterior approach POD 0. Pt has R anterior hip precautions and is WBAT. pt requiring CGA to min A with transfers using FWW but unable to tolerate much activity due to c/o nausea. pt just had surgery this morning and will likely progress during hospital stay. caregiver training set up for tomorrow at 9 am. will continue to assess progress. Goals Bed Mobility Goal Independent Transfer Goal Independent,Front Wheeled Walker Gait Goal Independent,Front Wheel Walker Gait Distance 250 Other Goals improve transfers and ambulation using LRAD >300 ft mod I up/down 2 steps using crutches SBA Days to Meet Goals 5 Frequency of Treatment Frequency Of Treatment Twice a Day Treatment Plan Physical Therapy Treatment Plan Bed Mobility Training,Transfer Training,Gait Training, Therapeutic Exercise,Balance Retraining,Post Op Education, Discharge Planning,Hot or Cold Pack,Neuromuscular Re-ed, Coordination Retraining,Manual Therapy Precautions Anterior Hip Precautions No Hip Extension,No Hip External Rotation Weight Bearing Status Weight Bearing Status Weight Bear as Tolerated Allowed Weight Bearing Amount (enter % RLE WBAT or #) (%) Recommendations To Nursing Amount of Assist Needed 1 Person Assist Discharge Recommendations PT Discharge Recommendations Home with Assistance, Outpatient PT Transportation Needs at Discharge Private Vehicle
--- NOTE | 2023-05-22 15:43 | OT.IP.EVAL ---
Current Diagnoses Unilateral primary osteoarthritis, right hip (05/22/23) Surgery Performed Operation Date: 05/22/23 07:45 Actual Procedures p Total Hip Arthroplasty/Anterior Approach(Right) - Inna Ridley MD Past Medical History (Last Updated 05/14/23 @ 09:09 by Kate Cowan, RN) GERD (gastroesophageal reflux disease) Hearing impaired History of COVID-19 (~2021) Hyperlipidemia Left groin mass Left groin pain No significant past medical history Olecranon bursitis Osteoarthritis Right groin pain Surgical History (Last Updated 05/14/23 @ 09:06 by Kate Cowan RN) H/O vasectomy History of ankle surgery (~2001) Hx of foot surgery (~1984) Hx of hernia repair (10/25/21) Hx of tonsillectomy Occupational Therapy Inpatient Evaluation/Re-Eval M2 OT-IP Current Condition Start: 05/22/23 15:46 Freq: Status: Active Protocol: Document 05/22/23 15:46 [facility] (Rec: 05/22/23 16:07 [facility] [id number]) Occupational Therapy Current Condition Current Condition Evaluation Date 05/22/23 Treatment Diagnosis S/P R SULEMAN anterior approach Diagnosis Onset Date 05/22/23 M3 OT- IP Subjective and Pain Start: 05/22/23 15:46 Freq: Status: Active Protocol: Document 05/22/23 15:46 [facility] (Rec: 05/22/23 16:07 [facility] [id number]) OT- Subjective Occupational Therapy Visit Type Type Initial Evaluation Visit Start Time 14:55 Visit Stop Time 15:43 Occupational Therapy Visit Comments Patient Comments Pt not feeling well, but agreed to get up especially after Dr. Ridley came in to encourage him to get up. Patient/Caregiver Goals To go home. OT Pain Assessment Pain When Pain Assessed During Mobility Pain Present Pain Present Pain Reported Location Right Hip Intensity 5 Scale Used Numeric (0 - 10) M4 OT- IP ADL's Start: 05/22/23 15:46 Freq: Status: Active Protocol: Document 05/22/23 15:46 [facility] (Rec: 05/22/23 16:07 [facility] [id number]) OT [id number] Comments OT Self-Feeding Comments Pt states has not eaten much yet today, no issues anticipated. OT ADL-Grooming Comments OT Grooming Comments Not performed, pt not feeling well. OT ADL-Oral Care Comments Oral Care Comments NOt performed. OT ADL-Dressing General Eval Lower Body Dressing Ability Maximum Assistance Areas Needing Assistance Socks Comments OT Dressing Comments Educated pt not to externally rotate his leg out for dressing needs and best to bend straight forwards or have his leg up or just have assist. OT ADL-Toileting General Evaluation Toileting Ability Standby Assistance Comments OT Toileting Comments Pt able to sit and urinate in the toilet. Suggested to have his assist pt to the bathroom or use of urinal if needed initially at home. OT ADL-Bathing Comments OT Bathing Comments Not performed. M5 OT- IP IADL's Start: 05/22/23 15:46 Freq: Status: Active Protocol: Document 05/22/23 15:46 [facility] (Rec: 05/22/23 16:07 [facility] [id number]) OT-Instrumental Activities of Daily Living Deficits IADL Deficits Identified Deficits Home Safety Awareness Awareness of Need for Assistance at Home Good Awareness Home Safety Comments Pt very groggy and having difficulty to pay attention at this time and needing lots of repetition for his hip precautions. Medication Management Medication Management Comments Pt able to assist. Money Management Money Management Comments Pt's does the bills. Meal Preparation Meal Preparation Caregiver Provides Assist Buyer Broker Buyer Broker Caregiver Provides Assist M6 OT- IP Functional Cognition Start: 05/22/23 15:46 Freq: Status: Active Protocol: Document 05/22/23 15:46 [facility] (Rec: 05/22/23 16:07 [facility] [id number]) Cognitive Factors Limiting Selfcare Function Cognitive Ability Level of Alertness Alert,Drowsy Patient Orientation Name,Place,Situation Attention Span Ability Capable of Focused Attention, Capable of Sustained Attention Ability to Follow Commands Able to Follow One Step Commands with Increased Time, Able to Follow One Step Commands with Repetition Cognitive Comments Cognitive Assessment Comments Pt is groggy and having difficulty to recall his precautions and incorporate them for ADL needs . OT- Vision and Hearing OT- Hearing Assessment OT- Hearing Assessment WFL M7 OT- IP Mobility and Balance Start: 05/22/23 15:46 Freq: Status: Active Protocol: Document 05/22/23 15:46 [facility] (Rec: 05/22/23 16:07 [facility] [id number]) OT- Bed Mobility Assessment Supine to Sit Supine to Sit Assist Standby Assistance Sit to Supine Sit to Supine Assist Standby Assistance OT-Transfer Assessment Sit to and From Stand Sit to and from Stand Contact Guard Assistance Transfers Transfer Ability Contact Guard Assistance, Minimal Assistance Technique Transfer Destination Bed,Toilet Transfer Technique Stand Step Pivot Devices Transfer Assistive Devices Gait Belt,Front Wheeled Walker Comments Mobility Comments SBA to be able to get to the edge of the bed and sit upright. CGA to stand with FWW and vc to put in right heel down on the floor and use of FWW. When transferring back to bed pt a bit more unsteady on his feet with the FWW. Suggested pt's get a FWW for the pt to use at home. OT- Balance Assessment Sitting Balance and Reactions Static Sitting Balance Ability Good Dynamic Sitting Balance Ability Good Standing Balance and Reactions Static Standing Balance Ability Fair Dynamic Standing Balance Ability Fair Comments Other Balance Tests/Deviations/Treatment Pt complaining of nausea : however when checked stable. O2 at 91 % initially and educated pt to take a few deep breaths and increased to 94%. M8 OT- IP Objective Assessments Start: 05/22/23 15:46 Freq: Status: Active Protocol: Document 05/22/23 15:46 [facility] (Rec: 05/22/23 16:07 [facility] [id number]) OT Gross Range of Motion Upper Extremity Range of Motion Assessment Within Functional Limits OT Strength Upper Extremity Strength Assessment Within Functional Limits M9 OT- IP Assessment and Plan Start: 05/22/23 15:46 Freq: Status: Active Protocol: Document 05/22/23 15:46 [facility] (Rec: 05/22/23 16:07 [facility] [id number]) OT Summary Assessment and Plan Potential Rehabilitation Potential Good Analytic Complexity at Evaluation Low Summary OT Impairments Pain,Strength,Balance, Functional Mobility,Grooming, Dressing,Toileting,Bathing, Toilet Transfers,Shower Transfers,Activity Tolerance Progress Towards Goals Progressing Toward Goals,Slow Progress due to Medical Issues Assessment Summary Pt low complexity and main barriers are pt is groggy, steps, decreased dynamic balance and will benefit from his to assist at home. Pt to go home when medically stable and attend outpt PT. Suggested pt get a FWW. Goals Self-Feeding Goal Independent Grooming Goal Independent Dressing Goal Independent Toileting Goal Independent Bathing Goal Independent Toilet Transfer Goal Independent Shower Transfer Goal Independent Patient/Caregiver Education Goal Caregiver Independent Assisting Patient Days to Meet Goals 5 Frequency of Treatment Frequency Of Treatment Once a Day Treatment Plan OT Treatment Plan ADL Training,Functional Mobility,Patient/Family Education,Discharge Planning Other Treatment Recommendations and Next caregiver training Treatment Focus Discharge Recommendations OT Discharge Recommendations Home with Assistance, Outpatient PT Home Equipment Needs FWW Transportation Needs at Discharge Private Vehicle
[2023-05-22] MEDS: ONDANSETRON 4 MG ODT PO (16:38)
[2023-05-22] MEDS: ACETAMINOPHEN 325 MG TABLET 650 MG PO (17:28)
[2023-05-22] MEDS: IBUPROFEN 400 MG TABLET PO (18:50)
[2023-05-22] MEDS: DOCUSATE 100 MG CAPSULE PO (21:17)
[2023-05-22] MEDS: ASPIRIN EC 81 MG TABLET PO (21:17)
[2023-05-23] MEDS: IBUPROFEN 400 MG TABLET PO ×3 (00:18→08:11)
[2023-05-23] MEDS: ACETAMINOPHEN 325 MG TABLET 650 MG PO ×2 (00:18→04:57)
[2023-05-23] MEDS: CEFAZOLIN 2 GM/100 ML PREMIX 100 ML IV (00:19)
[2023-05-23] MEDS: LACTATED RINGERS 1,000 ML 100 ML IV (01:03)
[2023-05-23 05:57] LABS: Hematocrit 33.6 % (41-53); Hemoglobin 11.5 g/dL (13.5-17.5)
--- NOTE | 2023-05-23 07:39 | PM.DS.1 ---
History of Present Illness History of Present Illness Date Patient Seen: 05/23/23 Time Patient Seen: 07:00 Chief complaint: Right SULEMAN Anterior *OPB* Narrative: Procedure: Right total hip arthroplasty anterior approach Same procedure as scheduled: Yes Indications: The patient has had progressively worsening right hip pain with radiographic changes consistent with arthritis. Non-operative management has failed and the patient has requested total hip replacement. The risks, benefits and alternatives to surgery were discussed with the patient prior to proceeding. Risks discussed included, but were not limited to, failure to relieve pain, leg length discrepancy, dislocation, stiffness, infection, nerve damage, deep venous thrombosis, pulmonary embolism, stroke, coma, heart attack, permanent paralysis and , as well as the potential need for eventual revision of the prosthetic. Patient is feeling well this morning. He was able to ambulate to the toilet and back with assistance last night. Pain is relieved with oral medication. Denies any nausea vomiting fever or chills. Denies any numbness into the lower extremities. Discharge Providers Provider Discharge Date: 05/23/23 Primary care physician: Lino Sheehan MD Consults: 05/18/23 12:36 Consult to Anesthesiology Routine Comment: Consulting Provider: Anesthesiologist Reason for consultation: Regional block for post operative pain control 05/22/23 07:44 Consult to Anesthesiology Routine Comment: Consulting Provider: Anesthesiologist Reason for consultation: Regional block for post operative pain control 05/22/23 11:48 Consult to Discharge Planning Routine Comment: Consult to Occupational Therapy Evaluate & Treat Comment: Physician Instructions: Evaluate and treat Consult to Physical Therapy Evaluate & Treat Comment: Physician Instructions: post op SULEMAN protocol Discharge provider: Beni Lyon PA-C Summary Hospital Course Discharge Diagnosis: Status post right hip arthroplasty. Hospital Course: Multimodal pain control. Physical therapy. Status at Discharge Cognitive/behavioral status at discharge: oriented Functional status at discharge: uses cane/walker Overall status at discharge: patient is back to baseline Time Spent with Patient Time spent: Less than 30 minutes Exam Vital Signs (past 8 hours): Oxygen Delivery Method Room Air Oxygen Flow Rate 0 Narrative Exam Narrative: Dressing appears to be well-maintained no signs of discharge. No posterior thigh or calf pain. Sensation grossly intact over the right lower extremity. Able to actively dorsiflex and plantar flex at the right ankle against resistance. Resp Effort & Inspection: normal respiratory effort and able to speak in complete sentences Objective Labs 05/23/23 05:46 Labs: Laboratory Results - last 24 hr 05/23/23 05:46 Hgb 11.5 L Hct 33.6 L PFSH Medical History (Updated 05/14/23 @ 09:09 by Kate Cowan RN) History of COVID-19 (~2021) Osteoarthritis Hearing impaired Left groin pain Left groin mass Right groin pain GERD (gastroesophageal reflux disease) Hyperlipidemia Olecranon bursitis No significant past medical history Surgical History (Updated 05/14/23 @ 09:06 by Kate Cowan RN) Hx of tonsillectomy H/O vasectomy Hx of foot surgery (~1984) Hx of hernia repair (10/25/21) History of ankle surgery (~2001) Family History Brother Age: 59 Heart valve problem High cholesterol Overweight Back problem Father Prostate cancer Social History household members: spouse Smoking Status: Never smoker alcohol intake: current Discharge Assessment & Plan Assessment and Plan Assessment: Status post right hip arthroplasty. Plan of Treatment: Discharge home Standard total hip replacement protocol with weight bearing as tolerated and anterior hip precautions. Aspirin 81 mg twice a day for DVT prophylaxis. Patient has acquired postoperative prescriptions already. Use as as prescribed. Start physical therapy in 3-7 days. Follow up with [facility] in 2 weeks for wound check. Discharge Plan Discharge Plan Patient Disposition: Home Provider Discharge Comment: DC pending PT approval Discharge orders & Medications Discharge Orders: Discharge (Order); Ordered 05/23/23 Ordered By: Beni Lyon Prescriptions: Continued omeprazole 20 mg capsule,delayed release(DR/EC) 20 mg PO DAILY ibuprofen 200 mg Tablet 400 mg PO DAILY Follow up/Referrals: Lino Sheehan MD [Primary Care Provider] - Diet/Activity/Treatments Diet: Diet as Tolerated Activity: Weightbearing as tolerated with anterior hip replacement protocols. Cold/Heat Therapy: Apply ice over the surgical site as needed for pain relief. Skin/Wound/Dressing Care Report to your healthcare provider any signs of infection, such as:: chills, fever, night sweats, unusual drainage and unusual redness Dressing: Keep dressing clean and dry. If dressing becomes dirty change with Adaptic pad and Travon dressing. Visit Report/Discharge Packet Instructions: DI for Hip Replacement Stand Alone Forms: Patient Portal/API, Surgery Discharge Discharge Data Primary Care Provider: Lino Sheehan Attending Provider: Inna Ridley VTE Deep Vein Thrombosis/Pulmonary Embolism Present on Admission: No
[2023-05-23 08:00] VITALS: BP 120/62; PULSE 70; RESP 16; TEMP 36.1; O2SAT 97
[2023-05-23] MEDS: PANTOPRAZOLE DR 20 MG TABLET PO (08:10)
[2023-05-23] MEDS: OXYCODONE IR 5 MG TABLET PO (08:11)
[2023-05-23] MEDS: ASPIRIN EC 81 MG TABLET PO (08:11)
[2023-05-23] MEDS: DOCUSATE 100 MG CAPSULE PO (08:11)
--- NOTE | 2023-05-23 08:50 | PT.IPTN ---
Current Diagnoses Unilateral primary osteoarthritis, right hip (05/22/23) Surgery Performed Operation Date: 05/22/23 07:45 Actual Procedures p Total Hip Arthroplasty/Anterior Approach(Right) - Inna Ridley MD Physical Therapy Treatment Note M2 PT-IP Current Condition Start: 05/22/23 15:58 Freq: NEEDED Status: Active Protocol: Document 05/22/23 14:55 AB (Rec: 05/22/23 16:11 AB [id number]) Physical Therapy Current Condition Current Condition Evaluation Date 05/22/23 Treatment Diagnosis s/p R SULEMAN anterior approach; difficulty in walking Onset Date 05/22/23 M3 PT-IP Subjective Start: 05/22/23 15:58 Freq: NEEDED Status: Active Protocol: Document 05/23/23 09:14 TS (Rec: 05/23/23 09:35 TS [id number]) Subjective Physical Therapy Visit Type Type Treatment Note Visit Start Time 08:50 Visit Stop Time 09:13 Notes Spouse present. Number of CIGAR BANDER Visits 1 Physical Therapy Visit Comments Patient Comments Pt found resting in bed, reports he is feeling much better and as been up to chair this morning. Therapy Pain Assessment Pain When Pain Assessed During Mobility Pain Present Pain Present Pain Reported M4 PT-IP Mobility and Gait Start: 05/22/23 15:58 Freq: NEEDED Status: Active Protocol: Document 05/23/23 09:14 TS (Rec: 05/23/23 09:35 TS [id number]) PT-Bed Mobility Assessment Supine to Sit Supine to Sit Standby Assistance Sit to Supine Sit to Supine Standby Assistance Scooting Scooting to Edge of Bed Standby Assistance PT-Transfer Assessment Sit to and From Stand Sit to and from Stand Standby Assistance,Use of Upper Extremities Equipment Transfer Assistive Device Gait Belt,4 Wheeled Walker Orthotic/Prosthetic Devices or Brace: No Comments Mobility Comments Pt donned pants with Agueda from spouse prior to mobility. He recalled 1/2 Ant hip precautions(did not recall hip Ext). He performed supine to sit SBA with BUE support and with no cues. STS from bed SBA with use of 4WW, pt has good standing balance with no retroleaning. He ambulated in hallway ~100' SBA with use of 4WW, dmeonstrates good management of FWW. He performed steps x2 with 4WW SBA with cues for step sequencing. Pt ambulated back to room, was educated on intensity and frequency of post-op ex. Pt was left in bed with spouse in room, RN notified. Gait Assessment Gait Gait Assistance Required: Standby Assistance Distance (Feet) 100 Able to Maintain Weight Bearing Status Yes During Gait Assistive Devices Assistive Device Gait Belt,Front Wheeled Walker Orthotic/Prosthetic Devices or Brace: No Gait Deviations General Gait Pattern Antalgic,Decreased Stride Length,Decreased Feet Clearance Factors Limiting Gait Function Factors Limiting Gait Function Decreased Activity Tolerance, Decreased Strength,Limited Range of Motion,Pain,Poor Balance Comments Gait Comments See mobility comments Stair Climbing Assessment Evaluation Level of Assist On Stairs Standby Assistance Devices Stair Climbing Assistive Devices Four Wheel Walker Technique/Endurance Stair Climbing Direction Ascend and Descend Stair Climbing Technique Step to Step Number of Steps Climbed 2 PT-Balance Assessment Sitting Balance and Reactions Static Sitting Balance Ability Normal Dynamic Sitting Balance Ability Good Standing Balance and Reactions Static Standing Balance Ability Good Dynamic Standing Balance Ability Good Device Used FWW M5 PT-IP Objective Assessments Start: 05/22/23 15:58 Freq: NEEDED Status: Active Protocol: Document 05/22/23 14:55 AB (Rec: 05/22/23 16:11 AB [id number]) Orientation Orientation/Cognition Level of Alertness Alert Orientation Name,Place,Situation Language Function Ability No Deficits Noted Safety Awareness Decreased Safety Awareness Memory Description Short Term Impaired Gross Range of Motion Lower Extremity ROM Assessment Within Functional Limits Strength Lower Extremity Strength Assessment Right Impaired Hip 3+/5 Knee 4/5 Coordination Assessment Gross Coordination Gross Coordination WNL Sensation Assessment Sensation Gross Sensation WNL Muscle Tone Muscle Tone WNL Yes M6 PT-IP Treatment Start: 05/22/23 15:58 Freq: NEEDED Status: Active Protocol: Document 05/23/23 09:14 TS (Rec: 05/23/23 09:35 TS [id number]) Physical Therapy Treatment Education Education Provided Precautions,Weight Bearing Status,Post-Op Packet,Safety M7 PT-IP Assessment and Plan Start: 05/22/23 15:58 Freq: NEEDED Status: Active Protocol: Document 05/23/23 09:14 TS (Rec: 05/23/23 09:35 TS [id number]) PT Summary Assessment and Plan Potential Rehabilitation Potential Good Summary Impairments Pain,ROM,Strength,Balance, Coordination,Sensation,Tone, Cognition,Bed Mobility, Transfers,Gait,Activity Tolerance Progress Towards Goals Progressing Toward Goals Assessment Summary Chris is making good progress with his mobility this session . He progressed all bed mobility to SBA with no cueing . He progressed his ambulation to ~100'SBA with use of 4WW. He performed stairs x2 SBA with use of 4WW, demonstrates good dynamic balance. PT is recommending pt return home with assist from spouse. Goals Bed Mobility Goal Independent Transfer Goal Independent,Front Wheeled Walker Gait Goal Independent,Front Wheel Walker Gait Distance 250 Other Goals improve transfers and ambulation using LRAD >300 ft mod I up/down 2 steps using crutches SBA Days to Meet Goals 5 Frequency of Treatment Frequency Of Treatment Twice a Day Treatment Plan Physical Therapy Treatment Plan Bed Mobility Training,Transfer Training,Gait Training, Therapeutic Exercise,Balance Retraining,Post Op Education, Discharge Planning,Hot or Cold Pack,Neuromuscular Re-ed, Coordination Retraining,Manual Therapy Precautions Anterior Hip Precautions No Hip Extension,No Hip External Rotation Weight Bearing Status Weight Bearing Status Weight Bear as Tolerated Allowed Weight Bearing Amount (enter % RLE WBAT or #) (%) Recommendations To Nursing Amount of Assist Needed Standby Assistance Discharge Recommendations PT Discharge Recommendations Home with Assistance, Outpatient PT Transportation Needs at Discharge Private Vehicle
--- NOTE | 2023-05-23 09:26 | CM.DANOTE ---
Initial DCP Assessment Visit Reviewed EMR for pt's medical status and anticipated d/c plan. Met with pt/spouse at bedside and introduced self and role. Pt was preparing for home discharge, has worked with PT already this morning for cg training. Spouse to transport, no identified d/c needs at this time. Payor: Danisha Ferreira Attending: Khai Pt is a 63 year-old M placed in OPIB following his total R-hip arthroplasty surgery. Pt had a hx of worsening R-hip pain over the last 4-years, radiographic imaging was consistent with arthritis. Pt states he has all needed DME at home, his will provide for care needs during immediate recovery period. Plan is to f/u with Ortho in 2-weeks for wound check, as well as OP PT. Discharge Planning/Care Management CM Discharge Assessment Start: 05/23/23 09:22 Freq: Status: Active Protocol: Document 05/23/23 09:23 DPL (Rec: 05/23/23 09:26 DPL [id number]) Discharge Planning Assessment Assigned Deputy Coroner GEETHA De La Cruz Advance Directives? Yes Advance Directives on File No History Provided By Patient,Family Member,Medical Record Has Patient been admitted in last 30 No days? Prior Living Arrangements House Household Members spouse Type of transporation used prior to Drives own vehicle admit Independent with ADL's Yes Is patient alert and oriented? Yes Comment N/A Caregiver for Another No Community Services used prior to Physical Therapy admission: DME Already Rented / Owned Bath Bench,Elevated Toilet Seat,FWW / Walker,Crutches Patient/Family Preference OP PT Therapy Barriers to Discharge No Discharge Plan Home Community Services Physical Therapy Transportation Arrangement Spouse Whiteboard Updated in Patient Room with Yes name and ext. # of Deputy Coroner Review Status In Process Please Provide Date Initial DC 05/23/23 Assessment Was Performed Pre-Anesthesia Assessment Start: 05/14/23 08:38 Freq: Status: Active Protocol: Document 05/14/23 08:38 CAB (Rec: 05/14/23 09:16 CAB [id number]) Pre-Anesthesia Assessment Preferred Name Chris Patient Information Reviewed Via Phone Assessment Assessment Completed With Patient Diagnostic Results BMP/CMP,CBC,EKG,Urinalysis Comment Labs/EKG @ 02/15/23 Primary Care Provider Lino Sheehan Seen Specialist in Last 12 Months Yes Specialist Seen Orthopedist Primary Language Togolese Virtual Customer Assistant Required No Height 177.8 cm Weight 95.254 kg Body Mass Index (BMI) 30.1 Hearing Ability Hearing Impaired,Use of Hearing Aid Visual Assist None Dentition Type Teeth, Natural Present Barriers to Learning None Hx Anesthesia Reactions No Hx Family Anesthesia Reaction No Hx Malignant Hyperthermia No Hx Blood Transfusions No Hx Blood Transfusion Reaction No Anesthesia Review Requested No Cafe Cook No alcohol intake current alcohol intake frequency 0-2 drinks per day Smoking Status Never smoker Substance Use Type does not use Pain Present Pain Reported Musculoskeletal Symptoms Abnormal Gait,Difficulty Walking,Joint Pain History of Falling (Recent or History of No ) Patient is completely paralyzed or No completely immobile Mental Status Oriented to own ability Is patient on oxygen? No Does patient have BRUSH/SOB No Hx Sleep Apnea No CPAP/BIPAP use not prescribed Currently Taking a Beta Chong No Can You Climb a Flight of Stairs Without Yes SOB Hx Chest Pain No Hx SOB No Hx Syncope or Dizziness No Anti-Coagulant Therapy No Has a Taxicab Coordinator No Cardiac Testing No Hx Pacemaker/ICD No Pacemaker Rep Required? No Cardiac Clearance Received Not Applicable Diet Type At Home Regular Dysphagia No Gastrointestinal Symptoms Reflux Chronic UTI No Urinary Catheter Present No Hx Urinary Self Catheterization No Diabetes No HgbA1C 5.9 Date 02/15/23 Hx Drug Resistant Organism No Presence of External or Internal Medical Yes: R ankle hardware Devices Received a COVID vaccine? Yes Received all doses? Yes Marital Status Lives With spouse Current Living Arrangements House Number of Floors (Floors) Two Floors Support System Spouse Does the Patient Have Assistance After Yes Surgery Patient Discharge Plan Description Return Home Comment Pt advised same day surgery per surgeon Feels Safe in Current Environment Yes Been Physically Hurt or Threatened By a No Person in Current Environment Do you have thoughts of harming yourself None or others? Are you currently considering suicide? No Do you have a plan to hurt yourself or No Plan others? Do You Have Any Spiritual Beliefs That No May Affect Your HC Choices? Do You Have Any Cultural Practices That No May Affect Your HC Choices? Who Can We Speak to About Patient's Care Family, friends Identifying Code for Release of Patient Declines to issue Information Health Care Proxy/Next of Kin Rebekah () Health Care Proxy Emergency Contact Name Rebekah () Emergency Contact Advance Directives? Yes Advance Directives on File No Requested Patient Bring Advanced Yes Directives DOS Power of Throw Out Clerk No PAC Instructions Assistance for 24 hours post- op,Durable medical equipment, Medications to take/avoid, Nasal antibiotic,No ETOH/ petroleum product on skin DOS, NPO,Post-op transportation,Pre -surgical wash,Sensory aids, Sturdy shoes/comfortable clothes,Do not bring valuables and remove jewelry
--- NOTE | 2023-05-23 10:39 | PC.NURSE ---
Day shift: Discharge instructions gone over with patient after caregiver training with PT. All questions answered, patient stated understanding. PIV d/c'ed prior to discharge. All belongings with patient. PCT Dioni escorted patient via wheelchair and SO to exit.
== END 2023-05-23 10:45 | disposition home or self-care (01) ==
LOC: OR 06:08 → AC 06:12
PROVIDERS: PCP Family Medicine; Referring Provider Family Medicine; Visit Provider Orthopaedic Surgery
PROC: (CPT 27130; principal; 2023-05-22 07:45)
DX: M25.751 Osteophyte, right hip (principal)
CPT/HCPCS: 27130; 36415; 73502; 76000; 85014; 85018; 97116; 97162; 97165; 97530; 97535; C1776; C9290; J0171; J0690; J2250; J2405; J2704; J3010

== ENCOUNTER 2024-01-02 08:58 | Day surgery (SDC) | payer OTHER, SELFPAY ==
[2023-05-22 12:01] VITALS: BMI 30.1
[2023-12-31 07:58] VITALS: BMI 30.4
--- NOTE | 2024-01-01 08:59 | PM.HP.1 ---
History of Present Illness History of Present Illness Date Patient Seen: 01/02/24 Time Patient Seen: 10:07 Chief complaint: Lap R inguinal hernia repair Narrative: 63-year-old male with a symptomatic reducible right inguinal hernia here for elective laparoscopic repair. No interval change in health. [facility] Medical History History of COVID-19 (~2021) Osteoarthritis Hearing impaired Left inguinal hernia Left groin pain Left groin mass Right groin pain GERD (gastroesophageal reflux disease) Hyperlipidemia Olecranon bursitis No significant past medical history Surgical History S/P total right hip arthroplasty (05/14/23) Hx of tonsillectomy H/O vasectomy Hx of foot surgery (~1984) Hx of hernia repair (10/25/21) History of ankle surgery (~2001) Family History Brother Age: 60 Heart valve problem High cholesterol Overweight Back problem Father Prostate cancer Social History marital status: household members: spouse lives independently: Yes Smoking Status: Never smoker alcohol intake: current Meds Home Medications and Allergies Home Medications Medication Instructions Recorded Confirmed Type omeprazole 20 mg capsule,delayed 20 mg PO DAILY 01/22/20 01/02/24 History release ibuprofen 200 mg tablet 400 mg PO DAILY 05/14/23 01/02/24 History Allergies Allergy/AdvReac Type Severity Reaction Status Date / Time [id number] Reductase AdvReac Intermediate Muscle Pain Verified 01/02/24 09:19 Inhibitor Exam Narrative Exam Narrative: Gen-Adult man alert and oriented no distress Abdomen-Soft right inguinal hernia marked with my initials Assessment & Plan Assessment and plan (1) Right inguinal hernia: Status: Acute Assessment & Plan narrative: 63M with symptomatic right inguinal hernia here for elective laparoscopic repair. Overview of the operation discussed. Operative risks including hemorrhage, infection, reoccurrence, pain reviewed. Questions have been answered and he provides consent. Time-Based Coding :: [TOTAL MINUTES] spent with patient and on the chart (including review of chart, obtaining history, exam, reviewing outside data, placing orders, documenting exam and treatment plan, and counseling patient) on [DATE].
[2024-01-02] VITALS (9 sets, daily range): BP systolic 122–156; BP diastolic 65–85; PULSE 47–57; RESP 12–19; TEMP 36.3–36.7; O2SAT 89–99; BMI 29.7
[2024-01-02] MEDS: ACETAMINOPHEN 325 MG TABLET 975 MG PO (10:27)
--- NOTE | 2024-01-02 10:31 | SUR.OPER ---
Supine on padded OR bed, head on pillow, arms padded and tucked at sides, legs uncrossed, safety belt at thigh, tape over blanket over lower legs .
[2024-01-02] MEDS: CEFAZOLIN 2 GM/100 ML PREMIX 100 ML IV (10:51)
[2024-01-02] MEDS: BUPIVACAINE 0.25% (PF) VIAL 30 ML INJ (11:00)
--- NOTE | 2024-01-02 11:51 | P.OP_ITS ---
Operative Date/Time/Diagnoses Date of procedure: 01/02/24 Time of procedure: 11:51 Pre-op diagnosis: Right inguinal hernia Post-op diagnosis: same Procedure & Clinicians Procedure: Laparoscopic repair of reducible right inguinal hernia Same procedure as scheduled: Yes Indications: Symptomatic reducible inguinal hernia Surgeon: Donta Samuel Calibration Specialist: Sushil Krueger Anesthesia Type: General Operative Notes Findings: Large right indirect defect Specimen(s): none sent Estimated Blood Loss (mL): 20 Procedure in detail: The patient was brought to the operating room and placed supine on the table. Bilateral sequential compression devices were applied. General anesthesia was induced and they were intubated with an endotracheal tube. A morgan cath was placed in sterile fashion. They received 2 g NSAID prior to skin incision. They were prepped and draped in sterile fashion. A time out was performed to ensure the correct patient, procedure and necessary equipment within the operating room. The skin was infiltrated with 0.25% bupivicaine. A 1 cm supra umbilical midline incision was made. The fascia was sharply incised and the abdomen entered traumatically. A 10mm balloon port was placed and pneumoperitoneum was established at 15mm Hg. Inspection of the abdomen demonstrated no evidence of injury upon entry. Two 5 mm ports were then placed under direct visualization in the right and left lower quadrant lateral to the rectus muscle. There were adhesions within the right pelvis which were carefully dissected. A 4 cm superior to the deep inguinal ring between the medial umbilical ligament and the anterior superior iliac spine was incised. The medial preperitoneal dissection was carried out into the space of Retzius bluntly, the bladder was swept inferiorly, the pubis and Charly's ligament were identified. Next attention was turned towards the lateral aspect of the peritoneal flap. The preperitoneal fat with the testicular vessels was carefully dissected off the inferior peritoneal flap. The cord was carefully inspected there was a moderate- size indirect fat containing hernia which was skeltonized off the cord preserving the testicular vessels and the vas deferns. No findings of a direct hernia.. A large Bard 3D Max mesh was then placed into the abdomen and p ositioned such that the myopectineal orifice was completely covered with good overlap on all sides. The peritoneal flap was then repositioned back to its original position and a running V lock suture was used to close the peritoneum such that no bowel could herniate into the preperitoneal space. The area was examined for hemostasis. The 5mm trocars were removed under direct visualization and pneumoperitoneum was deflated through the umbilical trocar, The fascia at the umbilicus was closed with 0-Vicryl in figure of 8 fashion, skin closed with 4-0 Monocyl followed by Dermabond. The sponge and instrument count at the end of the case was correct. Both testicles were entirely within the scrotum at the end of the case. The patient emerged from anesthsia was extubated and transferred to recovery in stable condition. Complications: none Post-operative Condition: stable Disposition: same day surgery
[2024-01-02] MEDS: LACTATED RINGERS 1,000 ML 42 ML IV ×2 (12:20→12:30)
[2024-01-02] MEDS: OXYCODONE IR 5 MG TABLET PO (12:27)
== END 2024-01-02 13:20 | disposition home or self-care (01) ==
PROVIDERS: PCP Family Medicine; Referring Provider Surgery; Visit Provider Surgery
PROC: 0YQ54ZZ Repair Right Inguinal Region, Percutaneous Endoscopic Approach (ICD-10-PCS; CPT 49650; principal; 2024-01-02 10:45)
DX: K40.90 Unilateral inguinal hernia, without obstruction or gangrene, not specified as recurrent (principal)
CPT/HCPCS: 49650; 82962; J0690; J1100; J1885; J2405; J2704; J3010

== ENCOUNTER → 2024-07-17 12:04 | Outpatient (CLI) | payer OTHER, SELFPAY ==
[2023-05-22 12:01] VITALS: BMI 30.1
--- NOTE | 2024-07-17 12:07 | DI.RAD.S_ITS ---
PROCEDURE: XR ANKLE RT MIN 3V INDICATIONS: pain swelling after squatting , hx complex fx w/ repair TECHNIQUE: 3 views of the ankle were acquired. COMPARISON: [facility] [place], CR, XR ANKLE 3 VIEWS WEIGHT BEARING RIGHT, 11/04/2020, 13:41. FINDINGS: Heterotopic ossification along the inferior tips of the malleoli. Prior fractures of the medial malleolus and talus status post screw fixation. Retained screw fragment in the medial malleolus. Re-identified widening of the lateral clear space of the ankle mortise. Mild lucencies at the medial and lateral talar domes. Moderate tibiotalar and mild subtalar osteoarthritis. Scattered midfoot osteoarthritis. Achilles calcaneal enthesopathy. Small tibiotalar joint effusion. IMPRESSION: 1. Moderate tibiotalar and mild subtalar osteoarthritis, likely posttraumatic. 2. Possible medial and lateral talar dome osteochondral defects. CT ankle without contrast could be performed for confirmation. 3. Chronic widening of the lateral clear space, suggestive of instability. Dictated by: Eugenio Adrian M.D. on 07/18/2024 at 12:43 Approved by: Eugenio Adrian M.D. on 07/18/2024 at 13:25
--- NOTE | 2024-07-17 12:07 | DI.RAD.S_ITS ---
PROCEDURE: XR FOOT RT MIN 3V INDICATIONS: pain swelling , hx complex fx w/ repair TECHNIQUE: 3 views of the foot were acquired. COMPARISON: [facility], CR, XR ANKLE RT MIN 3V, 07/17/2024, 12:07. [facility], CR, XR ANKLE 3 VIEWS WEIGHT BEARING RIGHT, 11/04/2020, 13:41. FINDINGS: No acute fracture or dislocation. The Lisfranc interval is preserved on the nonweightbearing view. The joint spaces are preserved. Please see the same-day right ankle x-ray report for details regarding the ankle findings. IMPRESSION: No acute fracture or dislocation of the right foot. Dictated by: Eugenio Adrian M.D. on 07/18/2024 at 12:40 Approved by: Eugenio Adrian M.D. on 07/18/2024 at 12:42
[2024-07-17 13:23] LABS: Erythrocyte Sedimentation Rate 5 MM/HR (0-15)
[2024-07-17 13:36] LABS: Uric Acid 5.9 mg/dL (3.5-8.5)
== END ==
LOC: LAB 12:06
PROVIDERS: PCP Family Medicine; Referring Provider Physician Assistant; Visit Provider Physician Assistant
DX: S99.921A Unspecified injury of right foot, initial encounter (principal); M19.071 Primary osteoarthritis, right ankle and foot
CPT/HCPCS: 36415; 73610; 73630; 84550; 85651

== ENCOUNTER → 2024-07-21 08:10 | Outpatient (CLI) | payer OTHER, SELFPAY ==
[2023-05-22 12:01] VITALS: BMI 30.1
[2024-07-21 09:04] LABS: Add Manual Diff / Slide Review NO; Basophils Absolute Auto 0 /uL (0-100); Basophils Percent Auto 0.9 % (0-2); Eosinophils Absolute Auto 100 /uL (0-450); Eosinophils Percent Auto 2.6 % (2-4); Hematocrit 41.2 % (41-53); Hemoglobin 13.9 g/dL (13.5-17.5); Lymphocytes Absolute Auto 1100 /uL (1100-4500); Lymphocytes Percent Auto 22.8 % (25-40); Mean Corpuscular HGB Conc 33.9 % (30-36); Mean Corpuscular Hemoglobin 30.6 PG (26-34); Mean Corpuscular Volume 90.4 fL (80-100); Monocytes Absolute Auto 500 /uL (0-900); Monocytes Percent Auto 9.9 % (3-14); Neutrophils Absolute Auto 3000 /uL (1500-7000); Neutrophils Percent Auto 63.8 % (50-75); Platelet Count 332 X10^3/uL (150-400); Red Blood Cell Count 4.55 X10^6/uL (4.5-5.9); Red Cell Distribution Width 13.3 % (11.6-14.8); White Blood Cell Count 4.7 X10^3/uL (4.5-11.0)
[2024-07-21 09:24] LABS: Alanine Aminotransferase 37 IU/L (<50); Albumin 4.4 g/dL (3.5-5.0); Albumin Globulin Ratio 1.7 (1.0-2.8); Alkaline Phosphatase 68 U/L (38-126); Aspartate Aminotransferase 30 IU/L (17-59); BUN Creatinine Ratio 16.1 (6-22); Bilirubin Total 0.5 mg/dL (0.2-1.3); Blood Urea Nitrogen 18 mg/dL (9-20); Calcium 9.9 mg/dL (8.4-10.2); Carbon Dioxide 22 mmol/L (22-32); Chloride 106 mmol/L (98-107); Cholesterol 227 mg/dL (140-199); Estimated Glomerular Filt Rate > 60 mL/min (>60); Globulin 2.6 g/dL (1.7-4.1); Glucose 115 mg/dL (80-110); HDL Cholesterol 48 mg/dL (40-60); HEMOLYSIS < 15 (0-50); LDL Cholesterol Calculated 154 mg/dL (<100); Potassium 4.7 mmol/L (3.4-5.1); Sodium 138 mmol/L (137-145); Triglycerides 127 mg/dL (35-150)
[2024-07-21 09:55] LABS: TSH w/ Reflex to FT4 1.62 uIU/mL (0.47-4.68)
[2024-07-22 03:39] LABS: Apolipoprotein B 107 mg/dL (<90)
== END ==
PROVIDERS: PCP Family Medicine; Referring Provider Family Medicine; Visit Provider Family Medicine
DX: Z00.00 Encounter for general adult medical examination without abnormal findings (principal); E78.1 Pure hyperglyceridemia; E78.5 Hyperlipidemia, unspecified; Z12.5 Encounter for screening for malignant neoplasm of prostate
CPT/HCPCS: 36415; 80053; 80061; 82172; 84443; 85025; G0103

== ENCOUNTER → 2024-08-05 12:50 | Outpatient (CLI) | payer OTHER, SELFPAY ==
[2023-05-22 12:01] VITALS: BMI 30.1
--- NOTE | 2024-08-05 13:13 | EKG_ITS ---
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
[2024-08-05 13:47] LABS: Add Manual Diff / Slide Review NO; Basophils Absolute Auto 0 /uL (0-100); Basophils Percent Auto 0.9 % (0-2); Eosinophils Absolute Auto 100 /uL (0-450); Eosinophils Percent Auto 2.4 % (2-4); Hematocrit 41.1 % (41-53); Hemoglobin 14.2 g/dL (13.5-17.5); Lymphocytes Absolute Auto 1700 /uL (1100-4500); Lymphocytes Percent Auto 31.7 % (25-40); Mean Corpuscular HGB Conc 34.5 % (30-36); Mean Corpuscular Hemoglobin 30.9 PG (26-34); Mean Corpuscular Volume 89.5 fL (80-100); Monocytes Absolute Auto 400 /uL (0-900); Monocytes Percent Auto 7.4 % (3-14); Neutrophils Absolute Auto 3100 /uL (1500-7000); Neutrophils Percent Auto 57.6 % (50-75); Platelet Count 352 X10^3/uL (150-400); Red Blood Cell Count 4.59 X10^6/uL (4.5-5.9); Red Cell Distribution Width 13.4 % (11.6-14.8); White Blood Cell Count 5.5 X10^3/uL (4.5-11.0)
[2024-08-05 14:00] LABS: Hemoglobin A1C% w Est Avg Glu 5.4 % (4.0-6.0)
[2024-08-05 14:10] LABS: Alanine Aminotransferase 35 IU/L (<50); Albumin 4.5 g/dL (3.5-5.0); Albumin Globulin Ratio 1.5 (1.0-2.8); Alkaline Phosphatase 65 U/L (38-126); Aspartate Aminotransferase 35 IU/L (17-59); BUN Creatinine Ratio 14.3 (6-22); Bilirubin Total 0.6 mg/dL (0.2-1.3); Blood Urea Nitrogen 16 mg/dL (9-20); Calcium 9.1 mg/dL (8.4-10.2); Carbon Dioxide 23 mmol/L (22-32); Chloride 105 mmol/L (98-107); Estimated Glomerular Filt Rate > 60 mL/min (>60); Glucose 122 mg/dL (70-99); HEMOLYSIS < 15 (0-50); Potassium 4.2 mmol/L (3.4-5.1); Sodium 138 mmol/L (137-145); Total Protein 7.5 g/dL (6.3-8.2)
== END ==
PROVIDERS: PCP Family Medicine; Referring Provider Orthopaedic Surgery Foot and Ankle Surgery; Visit Provider Orthopaedic Surgery Foot and Ankle Surgery
DX: Z01.818 Encounter for other preprocedural examination (principal); Z01.812 Encounter for preprocedural laboratory examination; R73.9 Hyperglycemia, unspecified
CPT/HCPCS: 36415; 80053; 83036; 85025; 93005

== ENCOUNTER → 2024-08-07 07:50 | Outpatient (CLI) | payer OTHER, SELFPAY ==
[2023-05-22 12:01] VITALS: BMI 30.1
--- NOTE | 2024-08-07 07:51 | DI.CT.S_ITS ---
PROCEDURE: CT LE RT WO CON INDICATIONS: Arthritis ankle right TECHNIQUE: Noncontrast 1-1.5 mm axial sections acquired from the right knee to the right foot, with coronal and sagittal reformats. COMPARISON: [facility], CR, XR ANKLE 3 VIEWS WEIGHT BEARING RIGHT, 07/18/2024, 13:13. FINDINGS: Image quality: Excellent. Bones: 2 screw fragments are seen in the medial malleolus. Additional screw fixation of the medial aspect of the talus head. The heads of the 2 screws extends outside the cortex of the posterior talus, extending to the posterior tibiotalar articulation. Mild degenerative changes of the talonavicular articulation. Small posterior calcaneal enthesophyte. Moderate degenerative changes of the anterior tibiotalar joint. Large area of serpiginous sclerosis in the talus dome, most pronounced in the lateral talus dome, concerning for large area of avascular necrosis /bone infarct. Mild articular surface incongruity. Ossifications about the medial and lateral malleolus, representing prior injury. Soft tissues: No knee effusion. Moderate calcification of the posterior tibialis artery. IMPRESSION: 1. Two screw fragments in the medial malleolus. 2. Screw fixation of the medial aspect of the talus head. The heads of the 2 screws extend into the posterior tibiotalar articulation. 3. Moderate degenerative change of the anterior aspect of the tibiotalar joint. 4. 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 Dictated by: Zulma Martino M.D. on 08/07/2024 at 14:02 Approved by: Zulma Martino M.D. on 08/07/2024 at 14:14
--- NOTE | 2024-08-07 07:51 | DI.US.S_ITS ---
PROCEDURE: US SCROTUM INDICATIONS: right testicular swelling TECHNIQUE: Real-time scanning was performed of the scrotum and testicles, with image documentation. Color and pulse Doppler interrogation was performed of both testicles. COMPARISON: None. FINDINGS: Right: Testicle is normal in size at 4.3 x 2.3 x 3.0 cm, and homogenous in echotexture. Epididymis is normal in overall size and morphology. Moderate hydrocele. No varicocele. Mild increased thickness. Left: Testicle is normal in size at 3.4 x 1.6 x 2.1 cm, and homogeneous in echotexture. Epididymis is normal in overall size and morphology. Moderate hydrocele. No varicocele. Overlying scrotal skin is normal in thickness. Doppler: Color and pulse Doppler demonstrate normal and symmetric arterial flow in both testicles. IMPRESSION: Moderate bilateral testicular hydroceles. No evidence of infection or torsion. Mild right scrotal wall thickening, nonspecific. Dictated by: Billy Iverson M.D. on 08/07/2024 at 16:38 Approved by: Billy Iverson M.D. on 08/07/2024 at 16:39
== END ==
PROVIDERS: PCP Family Medicine; Referring Provider Orthopaedic Surgery Foot and Ankle Surgery; Visit Provider Orthopaedic Surgery Foot and Ankle Surgery
DX: M19.071 Primary osteoarthritis, right ankle and foot (principal); N50.89 Other specified disorders of the male genital organs; N43.3 Hydrocele, unspecified; Z98.890 Other specified postprocedural states; Z87.19 Personal history of other diseases of the digestive system
CPT/HCPCS: 73700; 76870; 93975

== ENCOUNTER 2024-10-01 08:59 | Day surgery (SDC) | payer OTHER, SELFPAY ==
[2023-05-22 12:01] VITALS: BMI 30.1
[2024-09-18 10:49] VITALS: BMI 31.2
[2024-10-01] VITALS (7 sets, daily range): BP systolic 131–137; BP diastolic 73–80; PULSE 60–95; RESP 12–16; TEMP 36.1–36.4; O2SAT 94–99; BMI 30.4
--- NOTE | 2024-10-01 | DI.RAD.S_ITS ---
PROCEDURE: XR ANKLE RT MIN 3V INDICATIONS: RIGHT TOTAL ANKLE TECHNIQUE: Low resolution intraoperative fluoroscopic spot films were obtained COMPARISON: [facility], , XR ANKLE RT MIN 3V, 07/17/2024, 12:07. FINDINGS: Intraoperative fluoroscopic spot films show total ankle arthroplasty in progress IMPRESSION: Fluoroscopic guidance Approved by: Choco Adan M.D. on 10/01/2024 at 18:17
[2024-10-01] MEDS: ACETAMINOPHEN 325 MG TABLET 975 MG PO (09:25)
[2024-10-01] MEDS: LACTATED RINGERS 1,000 ML 42 ML IV ×2 (09:25→13:50)
--- NOTE | 2024-10-01 10:26 | PM.PREOP ---
Pre-operative Note Interval Note History & Physical reviewed/Exam performed by Physician: Yes Changes to H&P: No
--- NOTE | 2024-10-01 10:26 | PM.HP.1 ---
History of Present Illness History of Present Illness Date Patient Seen: 10/01/24 Time Patient Seen: 10:26 Chief complaint: R total ankle arthroplasty Narrative: The patient was a 64-year-old male with a right ankle pain and posttraumatic right ankle arthritis he had a previous history of a talar body fracture and is status post medial malleolar osteotomy and talus ORIF. He has had years of arthritic pain and nonoperative treatments site of failed. He has had worsening over the last few years and he has broken hardware in place in the medial malleolus. He has been indicated for right total ankle arthroplasty. He was not diabetic. He does not smoke and does not take any blood thinners. He has no personal or family history of thromboembolism. He endorses decreased range of motion and significant right ankle pain affecting his daily activity such as walking and using a gas pedal. He has severe pain even at night. [facility] Medical History History of COVID-19 (~2021) Osteoarthritis Hearing impaired Left inguinal hernia Left groin pain Left groin mass Right groin pain GERD (gastroesophageal reflux disease) Hyperlipidemia Olecranon bursitis No significant past medical history Surgical History Hx of right inguinal hernia repair (01/02/24) S/P total right hip arthroplasty (05/22/23) Hx of tonsillectomy H/O vasectomy Hx of foot surgery (~1984) Hx of hernia repair (10/25/21) History of ankle surgery (~2001) Family History Brother Age: 60 Heart valve problem High cholesterol Overweight Back problem Father Prostate cancer Social History marital status: household members: spouse lives independently: Yes Smoking Status: Never smoker alcohol intake: current Meds Home Medications and Allergies Home Medications ?Medication ?Instructions ?Recorded ?Confirmed ?Type omeprazole 20 mg capsule,delayed 20 mg PO DAILY 01/22/20 10/01/24 History release ibuprofen 200 mg tablet 400 mg PO DAILY 05/14/23 10/01/24 History acetaminophen 325 mg capsule 650 mg (2 x 325 mg) PO QID PRN 01/02/24 10/01/24 Rx (Tylenol) pain #60 caps Allergies Allergy/AdvReac Type Severity Reaction Status Date / Time [id number] Reductase AdvReac Intermediate Muscle Pain Verified 10/01/24 09:24 Inhibitor Review of Systems Review of Systems Narrative: Positive for GERD and omeprazole otherwise negative. ROS: Yes All systems reviewed with the patient and are negative except as otherwise documented Exam Vital Signs (past 8 hours): - 10/01/24 09:32 Temperature 97.4 F L Pulse Rate 60 Respiratory Rate 16 Blood Pressure 136/79 Pulse Oximetry 95 Oxygen Delivery Method Room Air Oxygen Delivery Method Room Air Narrative Exam Narrative: Alert and oriented male in no acute distress heart regular rate and rhythm lungs clear to auscultation bilaterally. Right lower extremity shows grossly normal alignment range of motion is limited at 0? of dorsiflexion 35? of plantar flexion. There is a healed medial arthrotomy scar no signs or symptoms of infection. Tibialis anterior palpable and intact. Tenderness to palpation along anterior tibiotalar joint neutral hindfoot. Calf is soft. Palpable dorsalis pedis pulse. Sensation grossly intact. Assessment & Plan Assessment and plan (1) Arthritis of ankle, right: Status: Acute Plan The patient was a 64-year-old male with end-stage posttraumatic right ankle arthritis he has failed extensive conservative treatment has been indicated for definitive surgical treatment for his posttraumatic ankle arthritis with total ankle arthroplasty. We discussed the possible need for ligamentous balancing procedures as well as hardware removal. He understand the risks of surgery including risks of persistent pain, wound healing complications, infection, dissatisfaction with the procedure, blood clots, fracture. The patient elects to proceed. Consent was signed. Time-Based Coding :: [TOTAL MINUTES] spent with patient and on the chart (including review of chart, obtaining history, exam, reviewing outside data, placing orders, documenting exam and treatment plan, and counseling patient) on [DATE]. Quality VTE Deep Vein Thrombosis/Pulmonary Embolism Present on Admission: No
[2024-10-01] MEDS: CEFAZOLIN 2 GM/100 ML PREMIX 100 ML IV (11:19)
--- NOTE | 2024-10-01 11:22 | SUR.PREOP ---
Block start time [10:57am] . Monitoring initiated and maintained throughout procedure. Oxygen and medications given per anesthesiologist instructions. Patient remained stable throughout procedure, no adverse reactions noted. Block end time [11:03am].
--- NOTE | 2024-10-01 11:58 | SUR.OPER ---
Supine on padded OR bed, head on pillow, arms secured on padded arm boards at <90 degrees abduction, legs uncrossed, safety belt at abdomen, tape over blanket over left lower leg. Right leg on blanket pile under control of surgeon, blanket bump under right hip.
[2024-10-01] MEDS: BUPIVACAINE 0.25% W/ EPI 30 ML VIAL 60 ML INJ (12:14)
--- NOTE | 2024-10-01 15:15 | PM.OP.1 ---
Operative Date/Time/Diagnoses Date of procedure: 10/01/24 Time of procedure: 11:15 Pre-op diagnosis: Right ankle arthritis, Achilles contracture Post-op diagnosis: same Procedure & Clinicians Procedure: Total ankle arthroplasty right CPT code 41750 Tendo-Achilles lengthening ankle 95255, right separate site modifier 59 Same procedure(s) as scheduled: Yes Indications: The patient was a 64-year-old male with posttraumatic right ankle arthritis after a talus fracture he is status post ORIF and partial hardware removal. He has broken retained hardware in the medial malleolus and retained Hina screws. His end-stage arthritis with difficulty and pain weight-bearing and night pain. He has failed numerous conservative treatments and has been indicated for total ankle arthroplasty. He also has decreased range of motion equinus contracture and has been indicated for a Achilles tendon lengthening. The risks and benefits of the procedure have been discussed with the patient and given the opportunity to ask questions. The risks of surgery include but are not limited to infection, malunion, nonunion, persistence of pain, damage to nerves and blood vessels, posttraumatic arthritis, DVT, PE, coardiopulmonary complications and . The patient expressed a thorough understanding of the risks and benefits of surgery and has elected to proceed. Consent was signed in the office today. Surgeon: Halina Khalil Click Yes if Unassisted: Yes Anesthesia Type: General, Peripheral nerve block and Local Operative Notes Findings: Varus right ankle arthritis posttraumatic, retained hardware, Achilles tendon contracture 0? dorsiflexion no change with the knee flexed or extended. After Achilles lengthening dorsiflexion of at least 10? was achieved. Closure Type: primary Specimen(s): none sent Prosthetic devices, grafts, tissues, transplants, or devices: Maize 28 apex 3D total ankle arthroplasty right. Tibia tray arc stem size 4 standard right Flat top talus size 2, right 6 mm polyethylene liner Applied: other (Splint) Estimated Blood Loss (mL): 100 Blood products transfused: none Tourniquet time (min): 135 Procedure in detail: Total ankle paragon 28 apex Patient was seen in the preoperative area the site of surgery was marked informed consent confirmed. This was the right lower extremity. The patient was found to have a Achilles contracture and was indicated for tendo Achilles lengthening. A preoperative block was placed by the anesthesia team for postoperative pain control the patient was brought to the operating room and positioned supine on the operative table. All bony prominences were well padded. A well-padded thigh tourniquet was applied. And the right lower extremity was prepped and draped in the standard sterile fashion. A formal time-out procedure was performed confirming the patient's side and site of surgery administration of appropriate preoperative antibiotic. All were in agreement. Attention was turned to the right leg Esmarch was used for exsanguination and the tourniquet elevated to 250 mm of mercury. Achilles contracture was addressed using a separate 3 1 cm open incisions at 2 cm, 4 cm and 6 cm above the Achilles insertion on the heel . The most distal and most proximal incision was made with nuria sections medially due to the varus arthritis and the middle nuria section was made in a lateral direction. After the nuria sections were completed the ankle was put dorsiflexion stretch with the knee extended and a audible and palpable stretch was obtained increasing dorsiflexion from 0 to at least 10? with the knee extended. Next attention was returned to the ankle. A standard anterior approach of the ankle was drawn out of the leg approximately 10 cm in length and 1 cm lateral to the tibial crest extending longitudinally bisecting the tibiotalar joint and talonavicular joint. This was made lateral to a previous posttraumatic scar that had a medial arthrotomy and a contracted scar greater than 20 years ago. This was taken down through skin and subcutaneous tissue with care to taken to isolate and protect the superficial peroneal nerve branch. Next the extensor retinaculum was opened and tagged with a 0 Vicryl for later repair. The EHL tendon sheath was opened in the EHL and neurovascular bundle were retracted laterally and the tibialis anterior was kept in its sheath and retracted medially. This brought us down directly on the anterior tibia. Dissection was taken all the way down to the talonavicular joint to expose the talus. Capsule was divided and retracted. Subperiosteal dissection was completed along the tibia and talus. This point the 3D guide for the tibial cut was applied to the bone and fit in the planned position this was pinned in place with a medial pin and then the guides were utilized and the alignment was checked in AP and lateral fluoroscopy. We wanted to move this slightly distally so we placed the pins in the fast track pins and then removed the 3D guide for the fast track guide and then carefully move the joint line distal to help us avoid the retained hardware in the medial malleolus. Then the cut guides were applied again checking sizes and checking medial and lateral orientation as well as slope. The marked drilled guide for the tibia were then used. Medial release was completed for the varus arthritis to mobilize the talus this was incompletely mobile for pinning with a coupled guide so the tibia was completed the guide was removed and a reciprocal saw was used to clean out the medial gutter once this was done the ankle was pinned in neutral and the couple of guide replaced and then pinned into the talus with a flat cut and then the talus was cut.. Once this was completed the talus and tibia least sections were removed and inspected. Some clean-up cuts along the posteromedial talus were made. Once the areas were appropriate the trials were applied and alignment was checked this provided appropriate alignment and range of motion with adequate bony bridges. Next the tibia preparation tray was placed and the central stem hole was drilled with a 90 degree drill. Next the tibial implants were removed and the ankle was brought into plantar flexion and the talar drill holes were drilled. Then all trials and drill guides were removed The areas were irrigated and then the implants were selected. This was a 4 standard tibia with the arc stem and a 2 flat top talus. 1 ccf demineralized bone matrix was placed on the tibial implant this was impacted in the standard fashion with excellent alignment and fixation. Next the talar implant was impacted in the standard fashion. And a trial 6 mm poly. Alignment was checked in AP mortise lateral planes and was excellent. Ankle was stable with the appropriate range of motion. The final 6 mm polyethylene liner was then applied. This point tourniquet was released and hemostasis was achieved. Capsule was closed with 0 Vicryl. Extensor retinaculum was closed with 0 Vicryl and 2-0 PDS. Subcutaneous with 2-0 PDS 4-0 Monocryl skin with 3-0 nylon suture. The patient was placed into a sterile dressing with Xeroform gauze Webril bulky Jacobs cotton and a posterior and stirrup splint. Patient was woken from anesthesia and taken to recovery unit in good condition there were no immediate complications from the procedure and all counts were correct. Complications: none Post-operative Condition: stable Disposition: PACU Plan for aftercare: Touchdown weight-bearing for balance. Elevate leg as much as possible to reduce swelling. Follow up in Orthopedic Clinic in 2-3 weeks for suture removal and progression of weight-bearing. Aspirin 325 mg daily for DVT prophylaxis x6 weeks.
== END 2024-10-01 17:19 | disposition home or self-care (01) ==
PROVIDERS: PCP Family Medicine; Referring Provider Family Medicine; Visit Provider Orthopaedic Surgery Foot and Ankle Surgery
PROC: (CPT 27702; principal; 2024-10-01 10:45)
DX: M19.171 Post-traumatic osteoarthritis, right ankle and foot (principal); M67.01 Short Achilles tendon (acquired), right ankle; T84.116A Breakdown (mechanical) of internal fixation device of bone of right lower leg, initial encounter; G89.18 Other acute postprocedural pain
CPT/HCPCS: 27702; 27685; 64450; 73610; 76000; C1776; C1713; J0690; J1100; J2250; J2405; J2704; J3010